=== PATIENT | male | born 1955 | race Hispanic/Latino ===

== ENCOUNTER 2017-04-06 16:06 | Inpatient (IN) | payer MEDICARE ==
[2017-04-06 17:08] LABS: #Lymphocytes 0.4 thou/uL (1.20-3.40); #Monocytes 0.7 thou/uL (0.11-0.59); #Neutrophils 12.2 thou/uL (1.40-6.50); %Eosinophils 0.3 % (0.0-10.0); %Lymphocytes 3.2 % (21.0-51.0); %Monocytes 5.1 % (0.0-10.0); Mean Platelet Volume 6.4 fL (7.4-10.4); Red Blood Cell (RBC) Count 3.79 mill/uL (4.70-6.10); White Blood Cell (WBC) Count 13.4 thou/uL (4.8-10.8)
[2017-04-06 17:34] LABS: ALT (SGPT) 33 U/L (8-55); AST (SGOT) 30 U/L (5-34); Alkaline Phosphatase 98 U/L (40-150); Anion Gap 15 mmol/L (10-20); BUN (Urea Nitrogen) 24 mg/dL (8.4-25.7); Bilirubin, Total 1.5 mg/dL (0.2-1.2); Calc. Creatinine Clearance 0 mL/min (70-130); Calcium 9.2 mg/dL (7.8-10.44); Carbon Dioxide 23 mmol/L (22-29); Chloride 97 mmol/L (98-107); Estimated GFR-MDRD 45; Globulin 5.1 g/dL (2.4-3.5); Protein, Total 8.7 g/dL (6.0-8.3)
--- NOTE | 2017-04-06 20:36 | RAD ---
RIGHT FOOT RADIOGRAPHS THREE VIEWS 04/06/17 PROVIDED CLINICAL HISTORY: Diabetic foot wound. FINDINGS: No evidence for fracture or other acute osseous abnormality. Alignment appears anatomic. Joint spaces appear preserved. Plantar calcaneal enthesophyte formation was noted. IMPRESSION: No radiographic evidence for osteomyelitis. POS: [facility]
--- NOTE | 2017-04-06 22:11 | RAD ---
LEFT FOOT RADIOGRAPHS THREE VIEWS 04/06/17 PROVIDED CLINICAL HISTORY: Diabetic foot wound. FINDINGS: Comparison is made with a study dated 10/14/16. Postoperative changes involving the fourth and fifth rays are demonstrated similar to prior study. De generative changes are seen at the midfoot. There is no evidence for fracture or other acute osseous abnormality. Plantar calcaneal enthesophyte formation is seen. Lucency in the soft tissues plantar as pect of the forefoot on the lateral view is compatible with the provided clinical history of wound. N o lytic change is apparent radiographically. IMPRESSION: 1. No radiographic evidence for osteomyelitis. POS: [facility]
[2017-04-06 23:13] LABS: Lactic Acid - Sepsis 1.6 mmol/L (0.5-2.2)
[2017-04-07] MEDS ORDERED: Acetaminophen 325 MG TAB PO PRN ×2 (01:17→06:59)
[2017-04-07] MEDS ORDERED: Ondansetron HCl/PF 4 MG/2 ML Vial IVP PRN ×2 (01:17→06:59)
[2017-04-07] MEDS ORDERED: Ondansetron ODT 4 MG TAB SL PRN (01:17)
[2017-04-07] MEDS ORDERED: HYDROcodone/Acetaminophen 10/325 mg Tablet PO PRN (06:59)
[2017-04-07] MEDS ORDERED: Chloraseptic Spray 180 ml Bottle PO PRN (06:59)
[2017-04-07] MEDS ORDERED: Dextrose 50% Abboject 50 ML SYRINGE SLOW IVP PRN (06:59)
[2017-04-07] MEDS ORDERED: Milk Of Magnesia 30 ML UDCUP PO PRN (06:59)
[2017-04-07] MEDS ORDERED: Mag-Al 1200 mg/1200 mg/30 ML UDCUP PO PRN (06:59)
[2017-04-07] MEDS ORDERED: hydrALAZINE 20 MG/ML VIAL SLOW IVP PRN (06:59)
[2017-04-07] MEDS ORDERED: Diabetic Tussin 200 MG/10 ML UDCUP PO PRN (06:59)
[2017-04-07] MEDS ORDERED: Senokot 8.6 MG TAB PO PRN (06:59)
[2017-04-07] MEDS ORDERED: Zolpidem Tartrate 5 MG TAB PO PRN (06:59)
[2017-04-07] MEDS ORDERED: Loratadine 10 MG TAB PO PRN (06:59)
[2017-04-07] MEDS ORDERED: HumaLOG 300 UNITS/3 ML VIAL SC PRN (06:59)
[2017-04-07] MEDS ORDERED: Sodium Chloride 0.65% Nasal 44 ML BOT EA NARE PRN (06:59)
[2017-04-07] MEDS ORDERED: Acetaminophen/Codeine 30-300mg Tablet PO PRN (06:59)
[2017-04-07] MEDS ORDERED: Eucerin (Mineral Oil/Petrolatum,White) 30 gm Jar TOP PRN (06:59)
[2017-04-07] MEDS ORDERED: Ondansetron ODT 4 MG TAB PO PRN (06:59)
[2017-04-07] MEDS ORDERED: Artificial Tears 18 DROP/0.9 ML EA EYE PRN (06:59)
[2017-04-07] MEDS ORDERED: Loperamide HCl 2 MG CAP PO PRN (06:59)
[2017-04-07] MEDS ORDERED: Dextrose 5% in Water 1,000 ML IV PRN (06:59)
[2017-04-07] MEDS ORDERED: Morphine 4 MG/ML VIAL SLOW IVP PRN (07:45)
[2017-04-07] MEDS: glyBURIDE 5 MG TAB PO SCH (09:12)
[2017-04-07] MEDS: Saccharomyces boulardii 250 MG CAP PO SCH (09:12)
[2017-04-07] MEDS: Famotidine 20 MG TAB PO SCH ×2 (09:13→21:14)
[2017-04-07] MEDS: Clopidogrel Bisulfate 75 MG TAB PO SCH (09:13)
[2017-04-07] MEDS: Atorvastatin Calcium 20 MG TAB PO SCH (09:13)
[2017-04-07] MEDS: Lisinopril 10 MG TAB PO SCH (09:13)
[2017-04-07] MEDS: Aspirin 81 mg Enteric Coated Tablet PO SCH (09:13)
[2017-04-07] MEDS: metFORMIN 500 MG TAB PO SCH (09:13)
[2017-04-07] MEDS: Enoxaparin Sodium 40 MG/0.4 ML SYRINGE SC SCH (09:14)
[2017-04-07] MEDS: Piperacillin/Tazobactam 4.5 GM in Sodium Chloride 0.9% 100 ML IVPB SCH ×4 (09:14→21:13)
[2017-04-07] MEDS: HumaLOG 300 UNITS/3 ML VIAL SC PRN ×2 (11:41→16:47)
--- NOTE | 2017-04-07 12:09 | HP ---
PRIMARY CARE PHYSICIAN: Dr. Yazmin Akins. REASON FOR ADMISSION: Right diabetic foot infection. HISTORY OF PRESENT ILLNESS: A 61-year-old male who presented to emergency room for evaluati on of wound on both feet on plantar aspect. Patient reports that he has deep wound on the left foot plantar aspect and smaller wound on the right foot on plantar aspect. He was seen by floor runner and he was instructed to go to emergency room. Paint Stockman suspected for osteomyelitis. Patient was also having erythema and swelling over right foot. He also had a fluctuance at the base of the right lit tle toe. Patient was having throbbing pain in the right foot and his erythema was progressing. He w as also having fever and chills and he was feeling weak. He was not able to put weight, because of t enderness, and with this, he presented to the emergency room for evaluation. Patient had foot x-ray on both sides, which was negative for any osteomyelitis. Patient has a right foot cellulitis with po ssible abscess and patient was admitted from ER to medical floor. The patient also reports that he was having foul smelling drainage from the plantar aspect of ulcer o n both feet, more on the right side. REVIEW OF SYSTEMS: The following complete review of systems was negative, unless otherwise mentioned in the HPI or below: Constitutional: Weight loss or gain, ability to conduct usual activities. Sk in: Rash, itching. Eyes: Double vision, pain. ENT/Mouth: Nose bleeding, neck stiffness, pain, te nderness. Cardiovascular: Palpitations, dyspnea on exertion, orthopnea. Respiratory: Shortness of breath, wheezing, cough, hemoptysis, fever, or night sweats. Gastrointestinal: Poor appetite, abdo jai pain, heartburn, nausea, vomiting, constipation, or diarrhea. Genitourinary: Urgency, frequen cy, dysuria, nocturia. Musculoskeletal: Pain, swelling. Neurologic/Psychiatric: Anxiety, depressi on. Allergy/Immunologic: Skin rash, bleeding tendency. Please see my HPI for pertinent positives a nd negatives. All other review of systems reviewed and negative except as mentioned in the HPI. ALLERGY: Acetazolamide. CURRENT HOME MEDICATIONS: Tylenol 1 gram p.o. q.6 hourly p.r.n., Tylenol #3 one tablet q.6 hourly p. r.n., aspirin 81 mg p.o. daily, Lipitor 20 mg p.o. daily, Plavix 75 mg p.o. daily, DiaBeta 5 mg p.o. daily, Levemir 20 units subcutaneous at bedtime, Humalog insulin as per sliding scale, lisinopril 10 mg p.o. daily, metformin 1000 mg p.o. daily, Toprol-XL 50 mg p.o. daily, Januvia 25 mg p.o. daily. PAST MEDICAL HISTORY: 1. Diabetes, type 2. 2. Glaucoma. 3. Hypertension. 4. Coronary artery disease. 5. Peripheral vascular disease. PAST SURGICAL HISTORY: Left fourth and fifth toe amputation, cardiac catheterization with stent. PAST PSYCHIATRIC HISTORY: Reviewed and negative. SOCIAL HISTORY: The patient lives at home with family. No history of tobacco, alcohol, or illicit d rug abuse. FAMILY HISTORY: Diabetes runs among several family members. No strong family history of cancer or s troke. EMERGENCY ROOM COURSE: Patient has received vancomycin. PHYSICAL EXAMINATION: VITAL SIGNS: Currently, blood pressure 195/88, pulse 116, respiratory rate 18, temperature 99.3, sat uration 95% on room air, weight 95.3 kilograms. GENERAL: Patient is currently alert, awake, in no obvious acute distress. HEENT: Normocephalic, atraumatic. Eyes: Pupils round and reactive to light. Extraocular muscles i ntact. ENT: Oropharynx within normal limits. Moist mucous membranes. No oral lesions. No pharyng eal erythema, no exudate. NECK: Supple, no JVD, no thyromegaly, no carotid bruit, no jugular venous distention. LUNGS: Clear to auscultation without any rhonchi or rales. CARDIAC: S1, S2 regular without any murmur. ABDOMEN: Soft, bowel sounds present, nontender, nondistended. No organomegaly, no mass, no suprapub ic tenderness. BACK EXAMINATION: Unremarkable, no CVA tenderness. EXTREMITIES: Upper extremities, passive movement of all joints are normal. Lower extremities, left foot has fourth and fifth digit amputated. The patient does have a 2 x 2 cm ulcer on the left foot o n plantar aspect, right foot has erythema on dorsal aspect with fluctuance and abscess noted at the b ase of the right small toe. The patient also has an ulcer on the plantar aspect. NEUROLOGIC: Grossly nonfocal examination. The patient moves all 4 limbs. Plantar bilateral flexor. PSYCHIATRIC: Normal affect. SKIN: No skin rash other than cellulitis. SIGNIFICANT LABORATORY DATA: X-ray of the foot on both sides negative for any fracture or dislocatio n or osteomyelitis. CBC: WBC 13.4, hemoglobin 11.3, platelets 309 with a left shift. BMP: Sodium 130, potassium 4.5, chloride 97, carbon dioxide 23, BUN 24, creatinine 1.58, glucose 320, calcium 9.2 , lactic acid 1.6. LFT: AST 30, ALT 33, alkaline phosphatase 98, albumin 3.6, CRP 26.03. ASSESSMENT AND PLAN: 1. Right foot cellulitis with diabetic foot ulceration on plantar aspect with severe inflammatory re sponse on the right foot. At this point, we will try to do MRI to rule out underlying osteomyelitis. This patient will need surgical debridement for his abscess. We will consult floor runner. We will also consult Wound Care team while in hospital. Patient will need broad-spectrum antibiotic therapy with vancomycin and Zosyn. We will monitor clinical response. 2. Hyponatremia, likely due to pseudohyponatremia from uncontrolled blood sugar. We will repeat BMP tomorrow. 3. Sepsis. Patient has sepsis criteria with leukocytosis with a left shift, tachycardia, source of infection is diabetic foot infection with cellulitis. The patient is already on broad-spectrum antib iotic therapy. 4. Diabetes, type 2, uncontrolled. At this point, we will resume Levemir insulin 20 units subcutane ous at bedtime, Humalog insulin as per sliding scale, metformin 1000 mg p.o. daily, and Januvia 25 mg p.o. daily. We will also continue DiaBeta 5 mg p.o. daily, and based on Accu-Chek, we will titrate diabetes medication. We will watch for hypoglycemia. Diabetic diet will be given. Currently, blood sugar is not well controlled, maybe related with infection. 5. Chronic kidney disease, stage 3. We will monitor renal function. Currently renal function is st able. 6. Coronary artery disease with a history of peripheral vascular disease. We will continue aspirin 81 mg p.o. daily, Plavix 75 mg p.o. daily along with lisinopril 10 mg p.o. daily, and metoprolol succ inate 50 mg p.o. daily. 7. Hypertension. Continue lisinopril 10 mg p.o. daily and Toprol-XL 50 mg p.o. daily. 8. Dyslipidemia. Continue Lipitor 20 mg p.o. at bedtime. 9. Obesity with BMI 30. Weight loss education given. Healthy lifestyle measures discussed with the patient. 10. Deep venous thrombosis prophylaxis. Lovenox 40 mg subcu daily. 11. Gastrointestinal prophylaxis. Pepcid 20 mg p.o. b.i.d. 12. Pain control. We will continue with morphine p.r.n. basis for pain control. CODE STATUS: The patient is FULL CODE. Patient does not have any surrogate decision maker. Disposition and plan based on clinical course. We are expecting patient's stay in hospital more than 2 midnights. Plan of care discussed with the patient in detail.
[2017-04-07] MEDS ORDERED: Insulin Detemir 100 UNITS/ML 20 UNITS in Pre-Filled Syringe 1 EACH SC SCH (21:00)
[2017-04-07] MEDS: Vancomycin HCl 1.25 GM in Sodium Chloride 0.9% 250 ML 250 ML IVPB SCH (22:02)
[2017-04-08] MEDS: Piperacillin/Tazobactam 4.5 GM in Sodium Chloride 0.9% 100 ML IVPB SCH ×4 (01:13→20:36)
[2017-04-08] MEDS: HumaLOG 300 UNITS/3 ML VIAL SC PRN (04:23)
[2017-04-08 05:51] LABS: #Eosinphils 0.1 thou/uL (0.0-0.7); #Lymphocytes 1.2 thou/uL (1.20-3.40); #Monocytes 1.1 thou/uL (0.11-0.59); #Neutrophils 8.2 thou/uL (1.40-6.50); %Basophils 0.3 % (0.0-1.0); %Eosinophils 1.1 % (0.0-10.0); %Lymphocytes 11.2 % (21.0-51.0); %Monocytes 10.3 % (0.0-10.0); Hematocrit 27.3 % (42.0-52.0); Mean Platelet Volume 6.3 fL (7.4-10.4); Red Blood Cell (RBC) Count 2.99 mill/uL (4.70-6.10); White Blood Cell (WBC) Count 10.7 thou/uL (4.8-10.8)
[2017-04-08 06:17] LABS: ALT (SGPT) 70 U/L (8-55); AST (SGOT) 82 U/L (5-34); Alkaline Phosphatase 86 U/L (40-150); Anion Gap 11 mmol/L (10-20); BUN (Urea Nitrogen) 27 mg/dL (8.4-25.7); Bilirubin, Total 0.6 mg/dL (0.2-1.2); Calc. Creatinine Clearance 64 mL/min (70-130); Calcium 8.5 mg/dL (7.8-10.44); Carbon Dioxide 26 mmol/L (22-29); Chloride 99 mmol/L (98-107); Estimated GFR-MDRD 46; Globulin 4.1 g/dL (2.4-3.5); Protein, Total 6.7 g/dL (6.0-8.3)
[2017-04-08] MEDS: Alogliptin 6.25 MG TAB PO SCH (08:10)
[2017-04-08] MEDS: Clopidogrel Bisulfate 75 MG TAB PO SCH (08:11)
[2017-04-08] MEDS: metFORMIN 500 MG TAB PO SCH (08:11)
[2017-04-08] MEDS: Aspirin 81 mg Enteric Coated Tablet PO SCH (08:11)
[2017-04-08] MEDS: Famotidine 20 MG TAB PO SCH ×2 (08:11→20:36)
[2017-04-08] MEDS: Atorvastatin Calcium 20 MG TAB PO SCH (08:11)
[2017-04-08] MEDS: glyBURIDE 5 MG TAB PO SCH ×2 (08:11→20:37)
[2017-04-08] MEDS: Saccharomyces boulardii 250 MG CAP PO SCH (08:11)
[2017-04-08] MEDS: Lisinopril 10 MG TAB PO SCH (08:12)
[2017-04-08] MEDS: Enoxaparin Sodium 40 MG/0.4 ML SYRINGE SC SCH (08:14)
--- NOTE | 2017-04-08 10:50 | PDOC.PN ---
- Subjective Encounter Start Date: 04/08/17 Encounter Start Time: 08:15 -: old records requested/rev Patient seen and examined. No new complaints. No overnight events - Objective Resuscitation Status: Resuscitation Status FULL:Full Resuscitation MAR Reviewed: Yes Vital Signs & Weight: Vital Signs (12 hours) Temp Pulse Resp BP BP Pulse Ox 04/08/17 08:12 132/75 04/08/17 07:37 98.0 F 80 16 132/75 95 04/08/17 04:00 98.0 F 60 18 130/71 97 Weight Admit Weight 197 lb 14.4 oz Weight 197 lb 14.4 oz I&O: 04/07/17 04/08/17 04/09/17 06:59 06:59 06:59 Output Total 500 Balance -500 Result Diagrams: 04/08/17 04:36 04/08/17 04:36 Additional Labs: Accuchecks 04/07/17 04/07/17 04/07/17 20:34 16:09 11:35 POC Glucose 369 H 227 H 371 H 04/07/17 05:31 POC Glucose 386 H Radiology Reviewed by me: Yes (MRI) Phys Exam - Physical Examination Constitutional: NAD HEENT: PERRLA, moist MMs, sclera anicteric Neck: no JVD, supple Respiratory: no wheezing, no rales, no rhonchi Cardiovascular: RRR, no significant murmur, no rub Gastrointestinal: soft, non-tender, no distention, positive bowel sounds Musculoskeletal: no edema, pulses present both foot with dressing, erythema improving Neurological: non-focal, normal sensation Psychiatric: normal affect, A&O x 3 Skin: no rash, normal turgor Dx/Plan (1) Bacteremia due to Streptococcus Code(s): R78.81 - BACTEREMIA; B95.5 - UNSP STREPTOCOCCUS THE CAUSE OF DISEASES CLASSD ELSWHR Status: Acute (2) Cellulitis of right foot Code(s): L03.115 - CELLULITIS OF RIGHT LOWER LIMB Status: Acute (3) Diabetic foot infection Code(s): E11.69 - TYPE 2 DIABETES MELLITUS WITH OTHER SPECIFIED COMPLICATION; L08.9 - LOCAL INFECTION OF THE SKIN AND SUBCUTANEOUS TISSUE, UNSP Status: Acute (4) Hyponatremia Code(s): E87.1 - HYPO-OSMOLALITY AND HYPONATREMIA Status: Acute (5) Sepsis Code(s): A41.9 - SEPSIS, UNSPECIFIED ORGANISM Status: Acute (6) Transaminitis Code(s): R74.0 - NONSPEC ELEV OF LEVELS OF TRANSAMNS & LACTIC ACID DEHYDRGNSE Status: Acute (7) Anemia, normocytic normochromic Code(s): D64.9 - ANEMIA, UNSPECIFIED Status: Chronic (8) CAD (coronary artery disease) Code(s): I25.10 - ATHSCL HEART DISEASE OF [place] CORONARY ARTERY W/O ANG PCTRS Status: Chronic (9) CKD (chronic kidney disease) stage 3, GFR 30-59 ml/min Code(s): N18.3 - CHRONIC KIDNEY DISEASE, STAGE 3 (MODERATE) Status: Chronic (10) Diabetes type 2, uncontrolled Code(s): E11.65 - TYPE 2 DIABETES MELLITUS WITH HYPERGLYCEMIA Status: Chronic Qualifiers: (11) Diabetic foot ulcers Code(s): E11.621 - TYPE 2 DIABETES MELLITUS WITH FOOT ULCER; L97.509 - NON- PRESSURE CHRONIC ULCER OTH PRT UNSP FOOT W UNSP SEVERITY Status: Chronic (12) Hyperlipidemia Code(s): E78.5 - HYPERLIPIDEMIA, UNSPECIFIED Status: Chronic Qualifiers: (13) Hypertension Code(s): I10 - ESSENTIAL (PRIMARY) HYPERTENSION Status: Chronic (14) Obesity (BMI 30.0-34.9) Code(s): E66.9 - OBESITY, UNSPECIFIED Status: Chronic - Plan cont current plan of care, continue antibiotics * spoke with Dr Johnson about plan * if MRI does not show any deeper infection or osteo, he will be treated with Iv antibiotics only * continue vancomycin and zosyn for now * pt will benefit from IV antibiotics * medication reviewed as below * symptomatic treatment * wound care. * increase diabeta 5 mg po bid * increase levemir 25 unit bedtime Review of Systems - Review of Systems ENT: negative: Ear Pain, Ear Discharge, Nose Pain, Nose Discharge, Nose Congestion, Mouth Pain, Mouth Swelling, Throat Pain, Throat Swelling, Other Respiratory: negative: Cough, Dry, Shortness of Breath, Hemoptysis, SOB with Excertion, Pleuritic Pain, Sputum, Wheezing Cardiovascular: negative: chest pain, palpitations, orthopnea, paroxysmal nocturnal dyspnea, edema, light headedness, other Gastrointestinal: negative: Nausea, Vomiting, Abdominal Pain, Diarrhea, Constipation, Melena, Hematochezia, Other Genitourinary: negative: Dysuria, Frequency, Incontinence, Hematuria, Retention , Other Musculoskeletal: Foot Pain. negative: Neck Pain, Shoulder Pain, Arm Pain, Back Pain, Hand Pain, Leg Pain, Other - Medications/Allergies Allergies/Adverse Reactions: Allergies Allergy/AdvReac Type Severity Reaction Status Date / Time acetazolamide Allergy Verified 03/24/16 14:10 [From Diamox Sequels] Medications: Current Medications Acetaminophen (Tylenol) 650 mg PO Q4H PRN PRN Reason: Headache/Fever or Pain Acetaminophen/Codeine Phosphate (Tylenol #3) 1 tab PO Q6H PRN PRN Reason: Moderate Pain (4-6) Hydrocodone Bitart/Acetaminophen ([place] 10/325) 1 tab PO Q4H PRN PRN Reason: Moderate Pain (4-6) Al Hydroxide/Mg Hydroxide (Maalox) 30 ml PO Q6H PRN PRN Reason: Heartburn or Indigestion Alogliptin Benzoate (Alogliptin) 6.25 mg PO DAILY [facility] Last Admin: 04/08/17 08:10 Dose: 6.25 mg Artificial Tears (Tears Naturale) 0 drop EA EYE PRN PRN PRN Reason: Dry Eyes Aspirin (Ecotrin) 81 mg PO DAILY [facility] Last Admin: 04/08/17 08:11 Dose: 81 mg Atorvastatin Calcium (Lipitor) 20 mg PO DAILY [facility] Last Admin: 04/08/17 08:11 Dose: 20 mg Clopidogrel Bisulfate (Plavix) 75 mg PO DAILY [facility] Last Admin: 04/08/17 08:11 Dose: 75 mg Dextrose/Water (Dextrose 50%) 25 gm SLOW IVP PRN PRN PRN Reason: Hypoglycemia Enoxaparin Sodium (Lovenox) 40 mg SC 0900 [facility] Last Admin: 04/08/17 08:14 Dose: 40 mg Famotidine (Pepcid) 20 mg PO BID [facility] Last Admin: 04/08/17 08:11 Dose: 20 mg Glucagon (Glucagon) 1 mg IM PRN PRN PRN Reason: Hypoglycemia Glyburide (Diabeta) 5 mg PO QAM-WM [facility] Last Admin: 04/08/17 08:11 Dose: 5 mg Guaifenesin (Robitussin Sf) 200 mg PO Q4H PRN PRN Reason: Cough Hydralazine HCl (Apresoline) 10 mg SLOW IVP Q4H PRN PRN Reason: Systolic BP > 180 Dextrose/Water (D5w) 1,000 mls @ 0 mls/hr IV .Q0M PRN; As Directed PRN Reason: Hypoglycemia Piperacillin Sod/Tazobactam (Sod 4.5 gm/ Sodium Chloride) 100 mls @ 200 mls/hr IVPB 0200,0800,1400,2000 [facility] Last Admin: 04/08/17 08:14 Dose: 100 mls Insulin Detemir 20 units/ (Miscellaneous Medication) 0.2 mls @ 0 mls/hr SC HS [facility] PRN Reason: As Directed Last Admin: 04/07/17 21:13 Dose: 0.2 mls Vancomycin HCl 1.25 gm/ Sodium (Chloride) 250 mls @ 166.667 mls/hr IVPB 2200 [facility] Last Admin: 04/07/17 22:02 Dose: 250 mls Insulin Human Lispro (Humalog) 0 units SC .MODERATE SLIDING SC PRN PRN Reason: Moderate Correctional Scale Last Admin: 04/08/17 04:23 Dose: 4 unit Insulin Human Lispro (Humalog) 0 units SC .BEDTIME SLIDING SC PRN PRN Reason: Bedtime Correctional Scale Last Admin: 04/07/17 21:14 Dose: 5 unit Lisinopril (Zestril) 10 mg PO DAILY [facility] Last Admin: 04/08/17 08:12 Dose: 10 mg Loperamide HCl (Imodium) 2 mg PO PRN PRN PRN Reason: Diarrhea/Loose Stools Loratadine (Claritin) 10 mg PO DAILYPRN PRN PRN Reason: Sinus Symptoms Magnesium Hydroxide (Milk Of Magnesium) 30 ml PO DAILYPRN PRN PRN Reason: Constipation Metformin HCl (Glucophage) 1,000 mg PO QAM-WM [facility] Last Admin: 04/08/17 08:11 Dose: 1,000 mg Metoprolol Succinate (Toprol Xl) 50 mg PO DAILY [facility] Last Admin: 04/08/17 08:13 Dose: 50 mg Mineral Oil/White Petrolatum (Eucerin Cream) 0 gm TOP BIDPRN PRN PRN Reason: Dry Skin Miscellaneous Medication (Pharmacy To Dose) 0 each IVPB ASDIR PRN PRN Reason: Pharmacy to Dose VANCOMYCIN Morphine Sulfate (Morphine) 4 mg SLOW IVP Q4H PRN PRN Reason: Pain Ondansetron HCl (Zofran Odt) 4 mg PO Q6H PRN PRN Reason: Nausea/Vomiting Ondansetron HCl (Zofran) 4 mg IVP Q6H PRN PRN Reason: Nausea/Vomiting Phenol (Chloraseptic [place] 180 Ml Bot) 0 ml PO PRN PRN PRN Reason: Sore Throat Saccharomyces Boulardii (Florastor) 250 mg PO DAILY [facility] Last Admin: 04/08/17 08:11 Dose: 250 mg Senna (Senokot) 2 tab PO HSPRN PRN PRN Reason: Constipation Sodium Chloride ([place] Nasal [place] 0.65%) 0 ml EA NARE QIDPRN PRN PRN Reason: Nasal Congestion Zolpidem Tartrate (Ambien) 5 mg PO HSPRN PRN PRN Reason: Insomnia
--- NOTE | 2017-04-08 10:57 | MRI ---
MRI OF THE RIGHT FOOT PERFORMED WITHOUT CONTRAST ENHANCEMENT: HISTORY: Diabetic with nonhealing ulcer. Evaluation for osteomyelitis. COMPARISON: Right foot x-ray performed on 04/06/2017. FINDINGS: A soft tissue ulcer and associated swelling is seen along the lateral of the foot, at the level of th e metatarsophalangeal joint of the fifth toe. There is a very superficial fluid collection associate d with this. There is diffuse muscle atrophy of the foot. There are T1 hypointense and T2 hyperinte nse changes of the fifth metatarsal head. I do not see definitive involvement of the proximal phalan x. The remainder of the metatarsals show fairly normal signal change. There are arthritic changes o f the first metatarsophalangeal joint. IMPRESSION: Soft tissue changes adjacent to the fifth metatarsal head. There is altered signal change within the metatarsal head, suggesting underlying osteomyelitis. POS: [facility]
[2017-04-08] MEDS: Insulin Detemir 100 UNITS/ML 25 UNITS in Pre-Filled Syringe 1 EACH SC SCH (20:37)
[2017-04-08 21:49] LABS: Vancomycin, Trough 9.5 ug/mL
[2017-04-08] MEDS: Vancomycin HCl 1.25 GM in Sodium Chloride 0.9% 250 ML 250 ML IVPB SCH (21:55)
[2017-04-09] MEDS: Piperacillin/Tazobactam 4.5 GM in Sodium Chloride 0.9% 100 ML IVPB SCH ×2 (03:08→10:16)
[2017-04-09] MEDS ORDERED: Propofol 500 MG/50 ML VIAL ONE (07:26)
[2017-04-09] MEDS ORDERED: Fentanyl 100 MCG/2 ML VIAL ONE (07:26)
[2017-04-09] MEDS ORDERED: Midazolam HCl 2 mg/2 ml Vial ONE (07:26)
[2017-04-09] MEDS ORDERED: Neomycin-Polymyxin 1 ML AMP ONE ×2 (07:45→07:50)
[2017-04-09] MEDS ORDERED: Bupivacaine PF 0.5% 30 ML VIAL ONE (07:45)
[2017-04-09] MEDS ORDERED: Promethazine HCl 25 MG/ML VIAL IM PRN (08:56)
[2017-04-09] MEDS ORDERED: Promethazine HCl 25 MG/ML VIAL SLOW IVP PRN (08:56)
[2017-04-09] MEDS ORDERED: Ondansetron HCl/PF 4 MG/2 ML Vial IVP PRN (08:56)
[2017-04-09] MEDS ORDERED: PHENYLEPHRINE-NS 100 MCG/ML 10 ML SYRINGE ONE (09:36)
[2017-04-09] MEDS: Clopidogrel Bisulfate 75 MG TAB PO SCH (10:16)
[2017-04-09] MEDS: Enoxaparin Sodium 40 MG/0.4 ML SYRINGE SC SCH (10:16)
[2017-04-09] MEDS: Aspirin 81 mg Enteric Coated Tablet PO SCH (10:16)
[2017-04-09] MEDS: Saccharomyces boulardii 250 MG CAP PO SCH (10:26)
[2017-04-09] MEDS: glyBURIDE 5 MG TAB PO SCH ×2 (10:27→21:52)
[2017-04-09] MEDS: Atorvastatin Calcium 20 MG TAB PO SCH (10:27)
[2017-04-09] MEDS: Lisinopril 10 MG TAB PO SCH (10:27)
[2017-04-09] MEDS: Famotidine 20 MG TAB PO SCH ×2 (10:27→21:52)
[2017-04-09] MEDS: Alogliptin 6.25 MG TAB PO SCH (10:27)
[2017-04-09] MEDS: metFORMIN 500 MG TAB PO SCH (10:32)
--- NOTE | 2017-04-09 10:35 | OP ---
DATE OF PROCEDURE: 04/09/2017 SURGEON: Tho Johnson DPM. PREOPERATIVE DIAGNOSIS: Abscess with osteomyelitis, right fifth metatarsal. POSTOPERATIVE DIAGNOSIS: Abscess with osteomyelitis, right fifth metatarsal. PROCEDURES PERFORMED: Partial fifth ray amputation, right foot. ANESTHESIA: Monitored anesthetic care with local infiltrative block. HEMOSTASIS: None. ESTIMATED BLOOD LOSS: 10 mL. MATERIALS: Packing gauze and various dressing materials. INJECTABLES: 10 mL of 0.5% Marcaine plain preoperatively. COMPLICATIONS: None. SUMMARY OF PROCEDURE: Patient was brought into the operative suite and placed supine on the operativ e table. Time out performed identifying correct patient, procedure and operative site. A well-padde d tourniquet placed about the right ankle, which ultimately was not used. Foot was prepped and drape d in an aseptic manner. Attention directed to the dorsal aspect of the lateral right fifth metatarsa l head. There has been a new blow out lesion here which is draining pus. Linear incision made at th e length of the fifth metatarsal and then around the base of the fifth digit, the fifth digit was dis articulated at the metatarsophalangeal joint and sent to pathology for gross and microscopic evaluati on. The fifth metatarsal head was found to be soft, crumbling and sample of this was taken and sent for culture, aerobic and anaerobic cultures. Liquefactive tissue and purulence was noted throughout the wound site. All the nonviable tissue was excised and removed. The fifth metatarsal was transect ed with power saw through the proximal metatarsal shaft at an area that was deemed hardened without i nfection. Distal portion of the bone was removed from the wound. The wound was then irrigated with 3 liters of normal saline mixed with 3 units of and the irrigant by pulse lavage. Wound was reexa mined after the washout noted and all nonviable tissue had been removed. The wound looked clean and healthy at this time, it was packed open with gauze and then dressings applied including 4 x 4s, ABD pads and Arnulfo bandage. He will be transferred back to the hospital floor, we will consult Wound Care to apply wound VAC to this wound for 3 times a week dressing changes and 125 mmHg, continuous negativ e pressure to the wound. The patient tolerated the procedure and anesthesia well and was transported out of the operative suite with vital signs stable and neurovascular status intact to the right lowe r extremity. He will be kept for a short period of monitoring in the after care unit and then transf erred back to his room.
--- NOTE | 2017-04-09 11:34 | PDOC.PN ---
- Subjective Encounter Start Date: 04/09/17 Encounter Start Time: 08:15 Patient seen and examined. No new complaints. No overnight events s/p toe amputation today - Objective Resuscitation Status: Resuscitation Status FULL:Full Resuscitation MAR Reviewed: Yes Vital Signs & Weight: Vital Signs (12 hours) Temp Pulse Resp BP BP BP Pulse Ox 04/09/17 10:35 68 20 155/81 H 95 04/09/17 10:27 132/75 04/09/17 10:00 97.6 F 68 20 139/79 95 04/09/17 09:27 97.0 F L 69 16 118/69 96 04/09/17 06:34 76 120/76 04/09/17 05:19 98.2 F 76 18 151/91 H 98 Weight Admit Weight 197 lb 14.4 oz Weight 197 lb 14.4 oz I&O: 04/08/17 04/09/17 04/10/17 06:59 06:59 06:59 Intake Total 1500 Output Total 500 900 Balance -500 600 Result Diagrams: 04/08/17 04:36 04/08/17 04:36 Additional Labs: Accuchecks 04/09/17 04/09/17 04/08/17 07:44 03:57 20:13 POC Glucose 203 H 214 H 251 H 04/08/17 04/08/17 04/08/17 16:20 11:27 04:22 POC Glucose 122 H 124 H 238 H Phys Exam - Physical Examination Constitutional: NAD HEENT: PERRLA, moist MMs, sclera anicteric Neck: no JVD, supple Respiratory: no wheezing, no rales, no rhonchi Cardiovascular: RRR, no significant murmur, no rub Gastrointestinal: soft, non-tender, no distention, positive bowel sounds Musculoskeletal: no edema, pulses present right foot with dressing Neurological: non-focal, normal sensation, moves all 4 limbs Psychiatric: normal affect, A&O x 3 Skin: no rash, normal turgor Dx/Plan (1) Bacteremia due to Streptococcus Code(s): R78.81 - BACTEREMIA; B95.5 - UNSP STREPTOCOCCUS THE CAUSE OF DISEASES CLASSD ELSWHR Status: Acute (2) Cellulitis of right foot Code(s): L03.115 - CELLULITIS OF RIGHT LOWER LIMB Status: Acute (3) Diabetic foot infection Code(s): E11.69 - TYPE 2 DIABETES MELLITUS WITH OTHER SPECIFIED COMPLICATION; L08.9 - LOCAL INFECTION OF THE SKIN AND SUBCUTANEOUS TISSUE, UNSP Status: Acute (4) Hyponatremia Code(s): E87.1 - HYPO-OSMOLALITY AND HYPONATREMIA Status: Acute (5) Sepsis Code(s): A41.9 - SEPSIS, UNSPECIFIED ORGANISM Status: Acute (6) Transaminitis Code(s): R74.0 - NONSPEC ELEV OF LEVELS OF TRANSAMNS & LACTIC ACID DEHYDRGNSE Status: Acute (7) Anemia, normocytic normochromic Code(s): D64.9 - ANEMIA, UNSPECIFIED Status: Chronic (8) CAD (coronary artery disease) Code(s): I25.10 - ATHSCL HEART DISEASE OF [place] CORONARY ARTERY W/O ANG PCTRS Status: Chronic (9) CKD (chronic kidney disease) stage 3, GFR 30-59 ml/min Code(s): N18.3 - CHRONIC KIDNEY DISEASE, STAGE 3 (MODERATE) Status: Chronic (10) Diabetes type 2, uncontrolled Code(s): E11.65 - TYPE 2 DIABETES MELLITUS WITH HYPERGLYCEMIA Status: Chronic Qualifiers: (11) Diabetic foot ulcers Code(s): E11.621 - TYPE 2 DIABETES MELLITUS WITH FOOT ULCER; L97.509 - NON- PRESSURE CHRONIC ULCER OTH PRT UNSP FOOT W UNSP SEVERITY Status: Chronic (12) Hyperlipidemia Code(s): E78.5 - HYPERLIPIDEMIA, UNSPECIFIED Status: Chronic Qualifiers: (13) Hypertension Code(s): I10 - ESSENTIAL (PRIMARY) HYPERTENSION Status: Chronic (14) Obesity (BMI 30.0-34.9) Code(s): E66.9 - OBESITY, UNSPECIFIED Status: Chronic - Plan cont current plan of care, plan discussed w/ family, continue antibiotics * will dc vancomycin and zosyn * today will change to rocephin only * wound care * will need wound vac * pain control * discussed with dr mason * medication reviewed as below * symptomatic treatment. Review of Systems - Review of Systems ENT: negative: Ear Pain, Ear Discharge, Nose Pain, Nose Discharge, Nose Congestion, Mouth Pain, Mouth Swelling, Throat Pain, Throat Swelling, Other Respiratory: negative: Cough, Dry, Shortness of Breath, Hemoptysis, SOB with Excertion, Pleuritic Pain, Sputum, Wheezing Cardiovascular: negative: chest pain, palpitations, orthopnea, paroxysmal nocturnal dyspnea, edema, light headedness, other Gastrointestinal: negative: Nausea, Vomiting, Abdominal Pain, Diarrhea, Constipation, Melena, Hematochezia, Other Genitourinary: negative: Dysuria, Frequency, Incontinence, Hematuria, Retention , Other Musculoskeletal: negative: Neck Pain, Shoulder Pain, Arm Pain, Back Pain, Hand Pain, Leg Pain, Foot Pain, Other Skin: negative: Rash, Lesions, Ramone, Bruising, Other - Medications/Allergies Allergies/Adverse Reactions: Allergies Allergy/AdvReac Type Severity Reaction Status Date / Time acetazolamide Allergy Verified 03/24/16 14:10 [From Diamox Sequels] Medications: Current Medications Acetaminophen (Tylenol) 650 mg PO Q4H PRN PRN Reason: Headache/Fever or Pain Acetaminophen/Codeine Phosphate (Tylenol #3) 1 tab PO Q6H PRN PRN Reason: Moderate Pain (4-6) Hydrocodone Bitart/Acetaminophen ([place] 10/325) 1 tab PO Q4H PRN PRN Reason: Moderate Pain (4-6) Al Hydroxide/Mg Hydroxide (Maalox) 30 ml PO Q6H PRN PRN Reason: Heartburn or Indigestion Alogliptin Benzoate (Alogliptin) 6.25 mg PO DAILY [facility] Last Admin: 04/09/17 10:27 Dose: 6.25 mg Artificial Tears (Tears Naturale) 0 drop EA EYE PRN PRN PRN Reason: Dry Eyes Aspirin (Ecotrin) 81 mg PO DAILY [facility] Last Admin: 04/09/17 10:16 Dose: Not Given Atorvastatin Calcium (Lipitor) 20 mg PO DAILY [facility] Last Admin: 04/09/17 10:27 Dose: 20 mg Clopidogrel Bisulfate (Plavix) 75 mg PO DAILY [facility] Last Admin: 04/09/17 10:16 Dose: Not Given Dextrose/Water (Dextrose 50%) 25 gm SLOW IVP PRN PRN PRN Reason: Hypoglycemia Enoxaparin Sodium (Lovenox) 40 mg SC 0900 [facility] Last Admin: 04/09/17 10:16 Dose: Not Given Famotidine (Pepcid) 20 mg PO BID [facility] Last Admin: 04/09/17 10:27 Dose: 20 mg Fentanyl (Pacu-Sublimaze) 50 mcg SLOW IVP Q10MIN PRN PRN Reason: Moderate to Severe Pain (6-10) Stop: 04/09/17 11:56 Glucagon (Glucagon) 1 mg IM PRN PRN PRN Reason: Hypoglycemia Glyburide (Diabeta) 5 mg PO BID [facility] Last Admin: 04/09/17 10:27 Dose: 5 mg Guaifenesin (Robitussin Sf) 200 mg PO Q4H PRN PRN Reason: Cough Hydralazine HCl (Apresoline) 10 mg SLOW IVP Q4H PRN PRN Reason: Systolic BP > 180 Dextrose/Water (D5w) 1,000 mls @ 0 mls/hr IV .Q0M PRN; As Directed PRN Reason: Hypoglycemia Piperacillin Sod/Tazobactam (Sod 4.5 gm/ Sodium Chloride) 100 mls @ 200 mls/hr IVPB 0200,0800,1400,2000 [facility] Last Admin: 04/09/17 10:16 Dose: Not Given Insulin Detemir 25 units/ (Miscellaneous Medication) 0.25 mls @ 0 mls/hr SC [facility] Last Admin: 04/08/17 20:37 Dose: 0.25 mls Vancomycin HCl 1.5 gm/ Sodium (Chloride) 300 mls @ 200 mls/hr IVPB 2200 [facility] Insulin Human Lispro (Humalog) 0 units SC .MODERATE SLIDING SC PRN PRN Reason: Moderate Correctional Scale Last Admin: 04/08/17 04:23 Dose: 4 unit Insulin Human Lispro (Humalog) 0 units SC .BEDTIME SLIDING SC PRN PRN Reason: Bedtime Correctional Scale Last Admin: 04/07/17 21:14 Dose: 5 unit Lisinopril (Zestril) 10 mg PO DAILY [facility] Last Admin: 04/09/17 10:27 Dose: 10 mg Loperamide HCl (Imodium) 2 mg PO PRN PRN PRN Reason: Diarrhea/Loose Stools Loratadine (Claritin) 10 mg PO DAILYPRN PRN PRN Reason: Sinus Symptoms Magnesium Hydroxide (Milk Of Magnesium) 30 ml PO DAILYPRN PRN PRN Reason: Constipation Metformin HCl (Glucophage) 1,000 mg PO QA-[facility] Last Admin: 04/09/17 10:32 Dose: 1,000 mg Metoprolol Succinate (Toprol Xl) 50 mg PO DAILY [facility] Last Admin: 04/09/17 06:33 Dose: 50 mg Mineral Oil/White Petrolatum (Eucerin Cream) 0 gm TOP BIDPRN PRN PRN Reason: Dry Skin Miscellaneous Medication (Pharmacy To Dose) 0 each IVPB ASDIR PRN PRN Reason: Pharmacy to Dose VANCOMYCIN Morphine Sulfate (Morphine) 4 mg SLOW IVP Q4H PRN PRN Reason: Pain Ondansetron HCl (Zofran Odt) 4 mg PO Q6H PRN PRN Reason: Nausea/Vomiting Ondansetron HCl (Zofran) 4 mg IVP Q6H PRN PRN Reason: Nausea/Vomiting Ondansetron HCl (Pacu-Zofran) 4 mg IVP ONE PRN PRN Reason: Nausea/Vomiting Stop: 04/09/17 11:56 Phenol (Chloraseptic [place] 180 Ml Bot) 0 ml PO PRN PRN PRN Reason: Sore Throat Promethazine HCl (Pacu-Phenergan) 6.25 mg SLOW IVP ONE PRN PRN Reason: Nausea/Vomiting Stop: 04/09/17 11:56 Promethazine HCl (Pacu-Phenergan) 6.25 mg IM ONE PRN PRN Reason: Nausea/Vomiting Stop: 04/09/17 11:56 Saccharomyces Boulardii (Florastor) 250 mg PO DAILY [facility] Last Admin: 04/09/17 10:26 Dose: 250 mg Senna (Senokot) 2 tab PO HSPRN PRN PRN Reason: Constipation Sodium Chloride ([place] Nasal [place] 0.65%) 0 ml EA NARE QIDPRN PRN PRN Reason: Nasal Congestion Zolpidem Tartrate (Ambien) 5 mg PO HSPRN PRN PRN Reason: Insomnia
--- NOTE | 2017-04-09 12:33 | RAD ---
RIGHT FOOT 2 VIEWS: Date: 04/09/17 HISTORY: Cellulitis. COMPARISON: Radiographs dated 04/06/17. FINDINGS: Interval resection of the fifth metatarsal. Expected postop gas and edema. IMPRESSION: Expected postoperative findings from fifth metatarsal amputation. POS: NIRAJ
[2017-04-09] MEDS: cefTRIAXone\\ROCEPHIN 2 GM in Sodium Chloride 0.9% 100 ML IVPB SCH (13:11)
[2017-04-09] MEDS: HumaLOG 300 UNITS/3 ML VIAL SC PRN ×2 (13:19→18:51)
[2017-04-09] MEDS ORDERED: Vancomycin HCl 1.5 GM in Sodium Chloride 0.9% 250 ML 300 ML IVPB SCH (22:00)
[2017-04-09] MEDS: Insulin Detemir 100 UNITS/ML 25 UNITS in Pre-Filled Syringe 1 EACH SC SCH (22:29)
[2017-04-10] MEDS: Aspirin 81 mg Enteric Coated Tablet PO SCH (08:01)
[2017-04-10] MEDS: Alogliptin 6.25 MG TAB PO SCH (08:01)
[2017-04-10] MEDS: metFORMIN 500 MG TAB PO SCH (08:01)
[2017-04-10] MEDS: Famotidine 20 MG TAB PO SCH ×2 (08:02→21:09)
[2017-04-10] MEDS: Atorvastatin Calcium 20 MG TAB PO SCH (08:02)
[2017-04-10] MEDS: Saccharomyces boulardii 250 MG CAP PO SCH (08:02)
[2017-04-10] MEDS: glyBURIDE 5 MG TAB PO SCH ×2 (08:02→21:09)
[2017-04-10] MEDS: Clopidogrel Bisulfate 75 MG TAB PO SCH (08:02)
[2017-04-10] MEDS: Enoxaparin Sodium 40 MG/0.4 ML SYRINGE SC SCH (08:03)
[2017-04-10] MEDS: Lisinopril 10 MG TAB PO SCH (08:03)
[2017-04-10] MEDS: cefTRIAXone\\ROCEPHIN 2 GM in Sodium Chloride 0.9% 100 ML IVPB SCH (11:04)
--- NOTE | 2017-04-10 12:02 | PDOC.PN ---
- Subjective Encounter Start Date: 04/10/17 Encounter Start Time: 07:30 Patient seen and examined. No new complaints. No overnight events - Objective Resuscitation Status: Resuscitation Status FULL:Full Resuscitation MAR Reviewed: Yes Vital Signs & Weight: Vital Signs (12 hours) Temp Pulse Resp BP BP Pulse Ox 04/10/17 08:35 97.9 F 76 16 139/82 97 04/10/17 08:03 132/75 04/10/17 08:00 97.9 F 76 16 97 Weight Admit Weight 197 lb 14.4 oz Weight 197 lb 14.4 oz I&O: 04/09/17 04/10/17 04/11/17 06:59 06:59 06:59 Intake Total 1500 500 Output Total 900 600 Balance 600 -100 Result Diagrams: 04/08/17 04:36 04/08/17 04:36 Additional Labs: Accuchecks 04/10/17 04/09/17 04/09/17 05:56 21:18 16:24 POC Glucose 128 H 311 H 175 H Phys Exam - Physical Examination Constitutional: NAD HEENT: PERRLA, moist MMs, sclera anicteric Neck: no JVD, supple Respiratory: no wheezing, no rales, no rhonchi Cardiovascular: RRR, no significant murmur, no rub Gastrointestinal: soft, non-tender, no distention, positive bowel sounds both foot with dressing, right foot with wound vac Neurological: non-focal, normal sensation, moves all 4 limbs Psychiatric: normal affect, A&O x 3 Skin: no rash, normal turgor Dx/Plan (1) Bacteremia due to Streptococcus Code(s): R78.81 - BACTEREMIA; B95.5 - UNSP STREPTOCOCCUS THE CAUSE OF DISEASES CLASSD ELSWHR Status: Acute (2) Cellulitis of right foot Code(s): L03.115 - CELLULITIS OF RIGHT LOWER LIMB Status: Acute (3) Diabetic foot infection Code(s): E11.69 - TYPE 2 DIABETES MELLITUS WITH OTHER SPECIFIED COMPLICATION; L08.9 - LOCAL INFECTION OF THE SKIN AND SUBCUTANEOUS TISSUE, UNSP Status: Acute (4) Hyponatremia Code(s): E87.1 - HYPO-OSMOLALITY AND HYPONATREMIA Status: Acute (5) Sepsis Code(s): A41.9 - SEPSIS, UNSPECIFIED ORGANISM Status: Acute (6) Transaminitis Code(s): R74.0 - NONSPEC ELEV OF LEVELS OF TRANSAMNS & LACTIC ACID DEHYDRGNSE Status: Acute (7) Anemia, normocytic normochromic Code(s): D64.9 - ANEMIA, UNSPECIFIED Status: Chronic (8) CAD (coronary artery disease) Code(s): I25.10 - ATHSCL HEART DISEASE OF [place] CORONARY ARTERY W/O ANG PCTRS Status: Chronic (9) CKD (chronic kidney disease) stage 3, GFR 30-59 ml/min Code(s): N18.3 - CHRONIC KIDNEY DISEASE, STAGE 3 (MODERATE) Status: Chronic (10) Diabetes type 2, uncontrolled Code(s): E11.65 - TYPE 2 DIABETES MELLITUS WITH HYPERGLYCEMIA Status: Chronic Qualifiers: (11) Diabetic foot ulcers Code(s): E11.621 - TYPE 2 DIABETES MELLITUS WITH FOOT ULCER; L97.509 - NON- PRESSURE CHRONIC ULCER OTH PRT UNSP FOOT W UNSP SEVERITY Status: Chronic (12) Hyperlipidemia Code(s): E78.5 - HYPERLIPIDEMIA, UNSPECIFIED Status: Chronic Qualifiers: (13) Hypertension Code(s): I10 - ESSENTIAL (PRIMARY) HYPERTENSION Status: Chronic (14) Obesity (BMI 30.0-34.9) Code(s): E66.9 - OBESITY, UNSPECIFIED Status: Chronic - Plan cont current plan of care, plan discussed w/ family, 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 Review of Systems - Review of Systems ENT: negative: Ear Pain, Ear Discharge, Nose Pain, Nose Discharge, Nose Congestion, Mouth Pain, Mouth Swelling, Throat Pain, Throat Swelling, Other Respiratory: negative: Cough, Dry, Shortness of Breath, Hemoptysis, SOB with Excertion, Pleuritic Pain, Sputum, Wheezing Cardiovascular: negative: chest pain, palpitations, orthopnea, paroxysmal nocturnal dyspnea, edema, light headedness, other Gastrointestinal: negative: Nausea, Vomiting, Abdominal Pain, Diarrhea, Constipation, Melena, Hematochezia, Other Genitourinary: negative: Dysuria, Frequency, Incontinence, Hematuria, Retention , Other Musculoskeletal: negative: Neck Pain, Shoulder Pain, Arm Pain, Back Pain, Hand Pain, Leg Pain, Foot Pain, Other Skin: negative: Rash, Lesions, Ramone, Bruising, Other - Medications/Allergies Allergies/Adverse Reactions: Allergies Allergy/AdvReac Type Severity Reaction Status Date / Time acetazolamide Allergy Verified 03/24/16 14:10 [From Diamox Sequels] Medications: Current Medications Acetaminophen (Tylenol) 650 mg PO Q4H PRN PRN Reason: Headache/Fever or Pain Acetaminophen/Codeine Phosphate (Tylenol #3) 1 tab PO Q6H PRN PRN Reason: Moderate Pain (4-6) Hydrocodone Bitart/Acetaminophen ([place] 10/325) 1 tab PO Q4H PRN PRN Reason: Moderate Pain (4-6) Al Hydroxide/Mg Hydroxide (Maalox) 30 ml PO Q6H PRN PRN Reason: Heartburn or Indigestion Alogliptin Benzoate (Alogliptin) 6.25 mg PO DAILY [facility] Last Admin: 04/10/17 08:01 Dose: 6.25 mg Artificial Tears (Tears Naturale) 0 drop EA EYE PRN PRN PRN Reason: Dry Eyes Aspirin (Ecotrin) 81 mg PO DAILY [facility] Last Admin: 04/10/17 08:01 Dose: 81 mg Atorvastatin Calcium (Lipitor) 20 mg PO DAILY [facility] Last Admin: 04/10/17 08:02 Dose: 20 mg Clopidogrel Bisulfate (Plavix) 75 mg PO DAILY [facility] Last Admin: 04/10/17 08:02 Dose: 75 mg Dextrose/Water (Dextrose 50%) 25 gm SLOW IVP PRN PRN PRN Reason: Hypoglycemia Enoxaparin Sodium (Lovenox) 40 mg SC 0900 [facility] Last Admin: 04/10/17 08:03 Dose: 40 mg Famotidine (Pepcid) 20 mg PO BID [facility] Last Admin: 04/10/17 08:02 Dose: 20 mg Glucagon (Glucagon) 1 mg IM PRN PRN PRN Reason: Hypoglycemia Glyburide (Diabeta) 5 mg PO BID [facility] Last Admin: 04/10/17 08:02 Dose: 5 mg Guaifenesin (Robitussin Sf) 200 mg PO Q4H PRN PRN Reason: Cough Hydralazine HCl (Apresoline) 10 mg SLOW IVP Q4H PRN PRN Reason: Systolic BP > 180 Dextrose/Water (D5w) 1,000 mls @ 0 mls/hr IV .Q0M PRN; As Directed PRN Reason: Hypoglycemia Insulin Detemir 25 units/ (Miscellaneous Medication) 0.25 mls @ 0 mls/hr SC [facility] Last Admin: 04/09/17 22:29 Dose: 0.25 mls Ceftriaxone Sodium 2 gm/ (Sodium Chloride) 100 mls @ 200 mls/hr IVPB Q24HR@ 1200 [facility] Last Admin: 04/10/17 11:04 Dose: 100 mls Insulin Human Lispro (Humalog) 0 units SC .MODERATE SLIDING SC PRN PRN Reason: Moderate Correctional Scale Last Admin: 04/09/17 18:51 Dose: 2 unit Insulin Human Lispro (Humalog) 0 units SC .BEDTIME SLIDING SC PRN PRN Reason: Bedtime Correctional Scale Last Admin: 04/07/17 21:14 Dose: 5 unit Lisinopril (Zestril) 10 mg PO DAILY [facility] Last Admin: 04/10/17 08:03 Dose: 10 mg Loperamide HCl (Imodium) 2 mg PO PRN PRN PRN Reason: Diarrhea/Loose Stools Loratadine (Claritin) 10 mg PO DAILYPRN PRN PRN Reason: Sinus Symptoms Magnesium Hydroxide (Milk Of Magnesium) 30 ml PO DAILYPRN PRN PRN Reason: Constipation Metformin HCl (Glucophage) 1,000 mg PO QA-[facility] Last Admin: 04/10/17 08:01 Dose: 1,000 mg Metoprolol Succinate (Toprol Xl) 50 mg PO DAILY [facility] Last Admin: 04/10/17 08:01 Dose: 50 mg Mineral Oil/White Petrolatum (Eucerin Cream) 0 gm TOP BIDPRN PRN PRN Reason: Dry Skin Morphine Sulfate (Morphine) 4 mg SLOW IVP Q4H PRN PRN Reason: Pain Ondansetron HCl (Zofran Odt) 4 mg PO Q6H PRN PRN Reason: Nausea/Vomiting Ondansetron HCl (Zofran) 4 mg IVP Q6H PRN PRN Reason: Nausea/Vomiting Phenol (Chloraseptic [place] 180 Ml Bot) 0 ml PO PRN PRN PRN Reason: Sore Throat Saccharomyces Boulardii (Florastor) 250 mg PO DAILY [facility] Last Admin: 04/10/17 08:02 Dose: 250 mg Senna (Senokot) 2 tab PO HSPRN PRN PRN Reason: Constipation Sodium Chloride ([place] Nasal [place] 0.65%) 0 ml EA NARE QIDPRN PRN PRN Reason: Nasal Congestion Zolpidem Tartrate (Ambien) 5 mg PO HSPRN PRN PRN Reason: Insomnia
[2017-04-10] MEDS: HumaLOG 300 UNITS/3 ML VIAL SC PRN (17:23)
[2017-04-10] MEDS: Insulin Detemir 100 UNITS/ML 25 UNITS in Pre-Filled Syringe 1 EACH SC SCH (21:09)
[2017-04-11] MEDS: Saccharomyces boulardii 250 MG CAP PO SCH (08:52)
[2017-04-11] MEDS: metFORMIN 500 MG TAB PO SCH (08:52)
[2017-04-11] MEDS: Alogliptin 6.25 MG TAB PO SCH (08:52)
[2017-04-11] MEDS: Aspirin 81 mg Enteric Coated Tablet PO SCH (08:53)
[2017-04-11] MEDS: glyBURIDE 5 MG TAB PO SCH (08:53)
[2017-04-11] MEDS: Famotidine 20 MG TAB PO SCH (08:53)
[2017-04-11] MEDS: Atorvastatin Calcium 20 MG TAB PO SCH (08:53)
[2017-04-11] MEDS: Lisinopril 10 MG TAB PO SCH (08:53)
[2017-04-11] MEDS: Clopidogrel Bisulfate 75 MG TAB PO SCH (08:53)
[2017-04-11] MEDS: Enoxaparin Sodium 40 MG/0.4 ML SYRINGE SC SCH (08:53)
[2017-04-11 08:58] VITALS: BP 151/85
[2017-04-11 09:09] VITALS: TEMP 98.1
--- NOTE | 2017-04-11 10:13 | PDOC.PN ---
- Subjective Encounter Start Date: 04/11/17 Encounter Start Time: 10:07 Patient seen at bedside. No overnight events, wishes to leave AMA - Objective Resuscitation Status: Resuscitation Status FULL:Full Resuscitation MAR Reviewed: Yes Vital Signs & Weight: Vital Signs (12 hours) Temp Pulse Resp BP BP Pulse Ox 04/11/17 08:53 151/85 H 04/11/17 08:00 98.1 F 86 16 151/85 H 95 Weight Admit Weight 197 lb 14.4 oz Weight 197 lb 14.4 oz I&O: 04/10/17 04/11/17 04/12/17 06:59 06:59 06:59 Intake Total 500 1620 Output Total 600 Balance -100 1620 Result Diagrams: 04/08/17 04:36 04/08/17 04:36 Additional Labs: Accuchecks 04/10/17 04/10/17 04/10/17 20:12 16:48 11:48 POC Glucose 182 H 281 H 202 H Phys Exam - Physical Examination Constitutional: NAD HEENT: PERRLA Neck: no JVD Respiratory: no rales Cardiovascular: RRR Gastrointestinal: soft Musculoskeletal: pulses present Neurological: moves all 4 limbs Psychiatric: A&O x 3 Dx/Plan (1) Acute osteomyelitis of metatarsal bone of right foot Code(s): M86.171 - OTHER ACUTE OSTEOMYELITIS, RIGHT ANKLE AND FOOT Status: Acute (2) Diabetic foot infection Code(s): E11.69 - TYPE 2 DIABETES MELLITUS WITH OTHER SPECIFIED COMPLICATION; L08.9 - LOCAL INFECTION OF THE SKIN AND SUBCUTANEOUS TISSUE, UNSP Status: Chronic (3) CAD (coronary artery disease) Code(s): I25.10 - ATHSCL HEART DISEASE OF [place] CORONARY ARTERY W/O ANG PCTRS Status: Chronic (4) CKD (chronic kidney disease) stage 3, GFR 30-59 ml/min Code(s): N18.3 - CHRONIC KIDNEY DISEASE, STAGE 3 (MODERATE) Status: Chronic (5) Hyperlipidemia Code(s): E78.5 - HYPERLIPIDEMIA, UNSPECIFIED Status: Chronic Qualifiers: (6) Hypertension Code(s): I10 - ESSENTIAL (PRIMARY) HYPERTENSION Status: Chronic - Plan cont current plan of care, continue antibiotics, psychosocial rehabilitation counselor * Awaiting home wound vac. * At this point the patient doesn't wish to wait for approval of the wound vac. I have explained to him that it is imperative for the treatment of his amputated toe. He will require outpatient wound care in addition to the home wound vac. He doesn't wish to wait for this. He understands that his wound can worsen, he can have further spreading of his infection requiring further amputation, sepsis. He still wishes to leave AMA. *
--- NOTE | 2017-04-11 19:28 | DIS ---
DATE OF ADMISSION: 04/07/2017 DATE OF DISCHARGE: 04/11/2017 AGAINST MEDICAL ADVICE NOTE BRIEF HOSPITAL COURSE: Mr. Deshaun Gonzalez is a 61-year-old male who presented to the emergency elly for a right diabetic foot infection. He was seen by his community administrator and has started to come to the emergency room for suspected osteomyelitis. He was having erythema and swelling over his right foot. He was subsequently admitted to the medical floor at which time he was placed on IV antibiotic ther apy with vancomycin and Zosyn. Wound care was consulted as well as Podiatry for evaluation of his ri ght foot cellulitis with diabetic ulceration. A foot x-ray at the time of admission revealed no radi ographic evidence for osteomyelitis. He was then subsequently taken for lower extremity MRI of his r ight foot which revealed soft tissue changes adjacent to the fifth metatarsal head suggesting underly ing osteomyelitis. Dr. Johnson, the community administrator was consulted and the patient underwent a partial fif th ray amputation of the right foot. Subsequent x-ray of the foot revealed expected postoperative ch anges. The patient had a wound VAC placed in. His microbiology grew out MRSA as well as Strep agala ctia group B, both of which were susceptible to clindamycin. The patient was to have outpatient woun d care setup. He did have a hospital wound VAC in place and goal was to have him switched out for a home VAC and then discharged home. On 04/11/2017, the patient did not want to wait for the home VAC which is still pending approval. He stated that he wanted to go home and he is going to followup wit h outpatient wound care, which is already set up. I have explained to the patient that he can now go home with the hospital VAC in a home wound VAC was standard of care and he needed for appropriate he aling of his osteomyelitis. The patient did not want to wait for the whole VAC and he understood th e risks of not having a home VAC while at home and getting his wound VAC changed. He wanted to go ho me. He understood the risks of further infection and worsening of his wound and possibility of furth er amputation of toes and possibly his foot as well as the possibility of sepsis. He understands the se risks as well as the risk of . He wants to go home. Instructions were given for wet to dry. Wound care was called to move the hospital VAC. The patient did not want to wait for a home VAC wh ich was still pending approval. I explained this to him at bedside that it may not be available unti tomorrow. He still wanted to go home. He states he will follow up on his own accord by his own me ans. He will be discharged later home today. I have given him a prescription for clindamycin based on susceptibilities. Other prescriptions have not been given and other arrangements have been made a s the patient left against medical advice. The nursing staff was present at the time. I have explai higinio to the patient at bedside and family the risks of against leaving medical advice and he still con tinued to wish to leave against medical advice. He left on 04/11/2017.
== END 2017-04-11 11:22 | disposition left against medical advice (07) | DRG 854 ==
LOC: ERS 16:06 → T4-A 04-07 00:27
PROVIDERS: ADMIT Internal Medicine; ATTEND Internal Medicine
PROC: 0Y6M0ZF Detachment at Right Foot, Partial 5th Ray, Open Approach (ICD-10-PCS; principal; 2017-04-09)
DX: A41.9 Sepsis, unspecified organism (principal); L03.115 Cellulitis of right lower limb; E11.22 Type 2 diabetes mellitus with diabetic chronic kidney disease; E11.621 Type 2 diabetes mellitus with foot ulcer; E87.1 Hypo-osmolality and hyponatremia; M86.8X7 Other osteomyelitis, ankle and foot; L02.611 Cutaneous abscess of right foot; I25.10 Atherosclerotic heart disease of native coronary artery without angina pectoris; I73.9 Peripheral vascular disease, unspecified; H40.9 Unspecified glaucoma; E11.65 Type 2 diabetes mellitus with hyperglycemia; I12.9 Hypertensive chronic kidney disease with stage 1 through stage 4 chronic kidney disease, or unspecified chronic kidney disease; N18.3 Chronic kidney disease, stage 3 (moderate); E66.9 Obesity, unspecified; Z68.30 Body mass index [BMI] 30.0-30.9, adult; E11.69 Type 2 diabetes mellitus with other specified complication; B95.62 Methicillin resistant Staphylococcus aureus infection as the cause of diseases classified elsewhere
CPT/HCPCS: 36415; 36416; 80053; 80202; 83605; 85025; 85652; 86140; 87040; 87070; 87077; 87149; 87186; 87205; 88305; 88311; 96365; J0696; J1650; J1815; J2250; J2543; J2704; J3010; J3370; J7050; S0020

== ENCOUNTER 2017-04-12 14:51 | Emergency (ER) | payer MEDICARE ==
[2017-04-12] MEDS ORDERED: Bacitracin Zinc 1 Packet ONE (18:16)
== END 2017-04-12 18:37 | disposition home or self-care (01) ==
LOC: ERS 14:51
DX: T81.89XA Other complications of procedures, not elsewhere classified, initial encounter (principal); E11.39 Type 2 diabetes mellitus with other diabetic ophthalmic complication; H40.9 Unspecified glaucoma; I10 Essential (primary) hypertension
CPT/HCPCS: 99282

== ENCOUNTER 2017-04-15 07:43 | Outpatient (CLI) | payer MEDICARE, OTHER ==
--- NOTE | 2017-04-15 09:33 | PRG ---
DATE OF SERVICE: 04/15/2017 SUBJECTIVE: A 61-year-old male returns to our wound clinic today for followup on bilateral ulceratio ns. We had seen him previously, but he gone away from the wound clinic for about 4 months. He devel oped an infection of right foot, which required partial fifth ray amputation which was performed on the 04/09. He was in the hospital and was said to receive the wound VAC, [facility] been received. He has been doing daily wet to dry gauz e dressing changes on both wounds. He is taking clindamycin 3 times a day. He denies nausea, vomiti ng, fevers or chills at this time. PHYSICAL EXAMINATION: Surgical wound of the right lateral fifth ray area measuring 6.9 cm x 2.3 cm x 1.2 cm of depth, 80% granular tissue, 20% slough and moderate serosanguineous drainage from the woun d. No odor, no periwound erythema, edema, or warmth or other signs of infection. Ulceration to the left plantar forefoot sub-second metatarsal head measuring 1.8 cm x 1.5 cm x 1 cm of depth, the flexo r longus tendon to the second digit is present within the wound base, does not probe to bone. The re st of the wound is 100% slough. Mild serosanguineous drainage from the wound. No malodor. No periwo und erythema, edema or warmth. ASSESSMENT: 1. 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 2. Status post right partial fifth ray amputation, left open to heal secondarily. PLAN: 1. Getting re-approval for wound VAC to be applied to both wounds, hopefully we can get the left kelly t wound to granulate over the tendon with aid of the wound VAC. Once he received some wound VAC, he will return to the [facility] to have it applied. Hopefully, this will be taken care of by Abdi barahona. I am going to start with every other day Silvercel or Silver hydrogel dressings to the wound base with gauze secondary dressings. Patient will continue with his oral antibiotics. 2. The patient will follow up with me in 1 week, but he will return for wound VAC application as lyndsey n as it arrives.
[2017-04-15] MEDS ORDERED: Sodium Chloride 0.9% 15 ML NEB ONE (13:31)
== END 2017-04-15 07:44 | disposition home or self-care (01) ==
LOC: WCC 07:43
PROVIDERS: ATTEND Podiatrist Foot & Ankle Surgery
DX: T81.89XD Other complications of procedures, not elsewhere classified, subsequent encounter (principal)
CPT/HCPCS: 11042; A4218

== ENCOUNTER 2017-04-19 08:14 | Outpatient (CLI) | payer MEDICARE, OTHER ==
[2017-05-13] MEDS ORDERED: Sodium Chloride 0.9% 15 ML NEB ONE (16:04)
== END 2017-04-19 08:15 | disposition home or self-care (01) ==
LOC: WCC 08:14
PROVIDERS: ATTEND Podiatrist Foot & Ankle Surgery
DX: T87.89 Other complications of amputation stump (principal); E11.621 Type 2 diabetes mellitus with foot ulcer; L97.529 Non-pressure chronic ulcer of other part of left foot with unspecified severity; Z89.421 Acquired absence of other right toe(s)
CPT/HCPCS: 36416; 97606

== ENCOUNTER 2017-04-22 08:12 | Outpatient (CLI) | payer MEDICARE, OTHER ==
[2017-04-22] MEDS ORDERED: Sodium Chloride 0.9% 15 ML NEB ONE (09:00)
--- NOTE | 2017-04-22 14:53 | PRG ---
DATE OF SERVICE: 04/22/2017 SUBJECTIVE: A 61-year-old male returns today for followup of bilateral foot ulcerations, digit his w ound VAC and had it placed on Tuesday and has been doing okay with the wound VAC in place since herman t time. Denies any nausea, vomiting, fevers or chills. PHYSICAL EXAMINATION: There is ulceration to the right lateral forefoot at his amputation site, 6.5 cm x 2.5 cm x 1 cm measuring 80% granulation tissue, 20% slough, no signs of periwound, erythema, catherine ma or warmth. Wound does not probe to bone. No drainage or other signs of infection. Second wound on the left foot measuring 1.6 cm x 1.4 cm x 0.4 cm. In the second metatarsal head, there is tendon exposed within the wound, it is 80% granular and 20% tendon does look improve since last visit with s ome more shiny moistness to it. No periwound erythema, edema or warmth. ASSESSMENT: 1. 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 2. 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 3. Diabetes with peripheral neuropathy. PLAN: 1. Full thickness debridement of both wounds down to the subcutaneous tissue layer removing all nonv iable tissue and biofilm within the wound bases with dermal curette. 2. Wound VAC will be reapplied today on both wounds at 125 mm continuous negative pressure therapy. He will follow up for 3 times a week dressing changes and see me again in 2 weeks.
== END 2017-04-22 08:13 | disposition home or self-care (01) ==
LOC: WCC 08:12
PROVIDERS: ATTEND Podiatrist Foot & Ankle Surgery
DX: T81.89XD Other complications of procedures, not elsewhere classified, subsequent encounter (principal); E11.621 Type 2 diabetes mellitus with foot ulcer; E11.42 Type 2 diabetes mellitus with diabetic polyneuropathy; L97.429 Non-pressure chronic ulcer of left heel and midfoot with unspecified severity; Z89.421 Acquired absence of other right toe(s)
CPT/HCPCS: 11042; A4218

== ENCOUNTER 2017-04-25 07:44 | Outpatient (CLI) | payer MEDICARE, OTHER ==
[2017-04-25] MEDS ORDERED: Sodium Chloride 0.9% 15 ML NEB ONE (10:00)
== END 2017-04-25 07:45 | disposition home or self-care (01) ==
LOC: WCC 07:44
PROVIDERS: ATTEND Podiatrist Foot & Ankle Surgery
DX: T81.89XD Other complications of procedures, not elsewhere classified, subsequent encounter (principal); E11.621 Type 2 diabetes mellitus with foot ulcer; L97.529 Non-pressure chronic ulcer of other part of left foot with unspecified severity; Z89.421 Acquired absence of other right toe(s)
CPT/HCPCS: 36416; 97605; A4218

== ENCOUNTER 2017-04-28 14:58 | Outpatient (CLI) | payer MEDICARE, OTHER | END 2017-04-28 14:59 | disposition home or self-care (01) | LOC: WCC 14:58 | PROVIDERS: ATTEND Podiatrist Foot & Ankle Surgery | DX: T87.89 Other complications of amputation stump (principal); E11.621 Type 2 diabetes mellitus with foot ulcer; L97.529 Non-pressure chronic ulcer of other part of left foot with unspecified severity; Z89.421 Acquired absence of other right toe(s) | CPT/HCPCS: 97606 ==

== ENCOUNTER 2017-05-02 07:43 | Outpatient (CLI) | payer MEDICARE, OTHER ==
[2017-05-02] MEDS ORDERED: Sodium Chloride 0.9% 15 ML NEB ONE (13:23)
== END 2017-05-02 07:44 | disposition home or self-care (01) ==
LOC: WCC 07:43
PROVIDERS: ATTEND Podiatrist Foot & Ankle Surgery
DX: T81.89XD Other complications of procedures, not elsewhere classified, subsequent encounter (principal); E11.621 Type 2 diabetes mellitus with foot ulcer; L97.529 Non-pressure chronic ulcer of other part of left foot with unspecified severity; Z89.421 Acquired absence of other right toe(s)
CPT/HCPCS: 97605; A4218

== ENCOUNTER 2017-05-04 07:43 | Outpatient (CLI) | payer MEDICARE, OTHER ==
[2017-05-04] MEDS ORDERED: Sodium Chloride 0.9% 15 ML NEB ONE (17:09)
== END 2017-05-04 07:44 | disposition home or self-care (01) ==
LOC: WCC 07:43
PROVIDERS: ATTEND Podiatrist Foot & Ankle Surgery
DX: T87.89 Other complications of amputation stump (principal); E11.621 Type 2 diabetes mellitus with foot ulcer; L97.529 Non-pressure chronic ulcer of other part of left foot with unspecified severity; Z89.421 Acquired absence of other right toe(s)
CPT/HCPCS: 97606; A4218

== ENCOUNTER 2017-05-06 07:46 | Outpatient (CLI) | payer MEDICARE ==
--- NOTE | 2017-05-06 09:48 | PRG ---
DATE OF SERVICE: 05/06/2017 SUBJECTIVE: A 61-year-old male returns status post right partial fifth ray amputation and for follow up on ulcer the left second metatarsal head. The patient has done well with VAC changes over the las t several weeks. Denies any nausea, vomiting, fevers or chills at this time. PHYSICAL EXAMINATION: Ulcer on the right lateral foot measures 2.5 cm x 1.2 cm 5.9 cm of depth. Thi s is significantly smaller since last visit, 100% granular wound base. No periwound erythema, edema or warmth. Wound #2 left plantar second metatarsal head measures 1.9 cm x 1.8 and 1.2 cm of depth, has about 30% slough tissue and the rest is filled with the second metatarsal head sitting in the wou nd base. Bone was noted to be somewhat brown and soft. No purulent drainage, no periwound erythema, edema or warmth. ASSESSMENT: 1. 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 2. Status post right partial fifth ray amputation, left to heal secondarily. PLAN: 1. Full thickness debridement of both wounds removing all nonviable tissue and biofilm with the derm al curet on the left foot wound. Rongeur was utilized to debride all nonviable bone including the en tirety of the second metatarsal head which was sent for bone culture, aerobic an anaerobic cultures. 2. Both wounds will have the wound VAC reapplied including black GranuFoam 125 mm of continuous nega tive pressure therapy and he will have 3 times a week dressing changes and follow up with me in 1 viraj bunn
[2017-05-06] MEDS ORDERED: Sodium Chloride 0.9% 15 ML NEB ONE (17:17)
== END 2017-05-06 07:47 | disposition home or self-care (01) ==
LOC: WCC 07:46
PROVIDERS: ATTEND Podiatrist Foot & Ankle Surgery
DX: L97.524 Non-pressure chronic ulcer of other part of left foot with necrosis of bone (principal); Z89.421 Acquired absence of other right toe(s)
CPT/HCPCS: 87070; 87077; 87186; 87205; A4218

== ENCOUNTER 2017-05-09 07:58 | Outpatient (CLI) | payer MEDICARE, OTHER | END 2017-05-09 07:59 | disposition home or self-care (01) | LOC: WCC 07:58 | PROVIDERS: ATTEND Podiatrist Foot & Ankle Surgery | DX: T81.89XD Other complications of procedures, not elsewhere classified, subsequent encounter (principal); E11.621 Type 2 diabetes mellitus with foot ulcer; L97.529 Non-pressure chronic ulcer of other part of left foot with unspecified severity | CPT/HCPCS: 36416; 97605 ==

== ENCOUNTER 2017-05-11 08:24 | Outpatient (CLI) | payer MEDICARE, OTHER | END 2017-05-11 08:25 | disposition home or self-care (01) | LOC: WCC 08:24 | PROVIDERS: ATTEND Podiatrist Foot & Ankle Surgery | DX: T81.89XD Other complications of procedures, not elsewhere classified, subsequent encounter (principal); E11.621 Type 2 diabetes mellitus with foot ulcer; L97.529 Non-pressure chronic ulcer of other part of left foot with unspecified severity; S98.1 Traumatic amputation of one toe | CPT/HCPCS: 97605 ==

== ENCOUNTER 2017-05-13 07:41 | Outpatient (CLI) | payer MEDICARE ==
--- NOTE | 2017-05-13 09:33 | PRG ---
DATE OF SERVICE: 05/13/2017 SUBJECTIVE: A 61-year-old male returns today for follow up bilateral foot ulcerations status post ri ght partial fifth ray amputation and debridement of the second metatarsal head from the plantar wound on the left side last week. The patient has been doing well with wound VAC dressing changes and has had no issues with the VAC since his last visit. Denies any nausea, vomiting, fevers or chills. He has been taking clindamycin daily since discharged from the hospital. PHYSICAL EXAMINATION: Ulceration of the right lateral foot amputation site measuring 2.8 cm x 1.0 cm x 1.0 cm, 100% granular wound base. No periwound erythema, edema or warmth. Wound on the left plan tar foot measuring 0.9 cm x 0.8 cm x 1.2 cm of depth, 50% granulation tissue, 50% slough. No periwou nd edema, erythema or warmth. Does not probe to bone, has no drainage. ASSESSMENT: 1. Non-pressure chronic ulceration to the left foot. 2. Status post right partial fifth ray amputation to the right foot. 3. Diabetes with peripheral neuropathy. PLAN: 1. Full thickness debridement of both wounds utilizing dermal curette and 15 blade down to bleeding granular wound base, removing all nonviable tissues, biofilm from the subcutaneous tissue layer of niles th wounds. 2. We will reapply the wound VAC to both wounds, continuous therapy at 125 mmHg. 3. I have changed his antibiotic based on the results of the cultures from the bone last week to Lev aquin 750 mg once daily. We will do this for 2 weeks and that should be sufficient. 4. The patient will follow up in 1 week with me.
[2017-05-13] MEDS ORDERED: Sodium Chloride 0.9% 15 ML NEB ONE (15:43)
== END 2017-05-13 07:42 | disposition home or self-care (01) ==
LOC: WCC 07:41
PROVIDERS: ATTEND Podiatrist Foot & Ankle Surgery
DX: T81.89XD Other complications of procedures, not elsewhere classified, subsequent encounter (principal); L97.529 Non-pressure chronic ulcer of other part of left foot with unspecified severity; E11.42 Type 2 diabetes mellitus with diabetic polyneuropathy; Z89.432 Acquired absence of left foot
CPT/HCPCS: 36416; A4218

== ENCOUNTER 2017-05-16 10:35 | Outpatient (CLI) | payer MEDICARE, OTHER | END 2017-05-16 10:36 | disposition home or self-care (01) | LOC: WCC 10:35 | PROVIDERS: ATTEND Podiatrist Foot & Ankle Surgery | DX: T81.89XD Other complications of procedures, not elsewhere classified, subsequent encounter (principal); E11.621 Type 2 diabetes mellitus with foot ulcer; L97.529 Non-pressure chronic ulcer of other part of left foot with unspecified severity; S98.131D Complete traumatic amputation of one right lesser toe, subsequent encounter | CPT/HCPCS: 97605 ==

== ENCOUNTER 2017-05-18 13:20 | Outpatient (CLI) | payer MEDICARE, OTHER ==
[2017-05-23] MEDS ORDERED: Sodium Chloride 0.9% 15 ML NEB ONE (15:39)
== END 2017-05-18 13:21 | disposition home or self-care (01) ==
LOC: WCC 13:20
PROVIDERS: ATTEND Podiatrist Foot & Ankle Surgery
DX: T87.89 Other complications of amputation stump (principal); E11.621 Type 2 diabetes mellitus with foot ulcer; L97.529 Non-pressure chronic ulcer of other part of left foot with unspecified severity; Z89.421 Acquired absence of other right toe(s)
CPT/HCPCS: 97606

== ENCOUNTER 2017-05-20 07:58 | Outpatient (CLI) | payer MEDICARE, OTHER ==
--- NOTE | 2017-05-20 11:28 | PRG ---
DATE OF SERVICE: 05/20/2017 SUBJECTIVE: The patient returns today for followup of bilateral foot wounds, status post right parti al fifth ray amputation and left plantar second metatarsal head ulceration. Doing well over the last week with the wound VAC. No problems. Denies any nausea, vomiting, fevers or chills. PHYSICAL EXAMINATION: Ulceration to the left plantar forefoot measuring 1 cm x 0.6 cm x 1 cm of dept h, 90% granulation tissue, 10% slough. No periwound erythema, edema or warmth. Wound does no longer probe to bone. No tendon present within the wound. Ulceration on the right lateral foot measures 1 .5 cm x 0.7 cm x 0.3 cm of depth, 100% granular tissue. No periwound erythema, edema, or warmth. Do es not probe to bone or tendon. ASSESSMENT: Non-pressure chronic ulceration, bilateral foot, status post right partial fifth ray amp utation, improving with wound VAC changes. PLAN: 1. Full thickness debridement of both wounds down to a bleeding granular wound base, removing all no nviable tissue and biofilm from the wound bases. The patient tolerated the procedure well. 2. We are going to continue with wound VAC to both sides, continuous 125 mmHg of negative pressure a nd black GranuFoam. Return for 3 times a week dressing changes and to see me in 1 week.
[2017-05-23] MEDS ORDERED: Sodium Chloride 0.9% 15 ML NEB ONE (16:53)
== END 2017-05-20 07:59 | disposition home or self-care (01) ==
LOC: WCC 07:58
PROVIDERS: ATTEND Podiatrist Foot & Ankle Surgery
DX: T81.89XD Other complications of procedures, not elsewhere classified, subsequent encounter (principal); Z89.421 Acquired absence of other right toe(s)

== ENCOUNTER 2017-05-23 15:07 | Outpatient (CLI) | payer MEDICARE, OTHER ==
[2017-05-23] MEDS ORDERED: Sodium Chloride 0.9% 15 ML NEB ONE (18:08)
== END 2017-05-23 15:08 | disposition home or self-care (01) ==
LOC: WCC 15:07
PROVIDERS: ATTEND Podiatrist Foot & Ankle Surgery
DX: T81.89XD Other complications of procedures, not elsewhere classified, subsequent encounter (principal); E11.621 Type 2 diabetes mellitus with foot ulcer; L97.529 Non-pressure chronic ulcer of other part of left foot with unspecified severity; S98.1 Traumatic amputation of one toe
CPT/HCPCS: 97606; A4218

== ENCOUNTER 2017-05-25 07:51 | Outpatient (CLI) | payer MEDICARE, OTHER | END 2017-05-25 07:52 | disposition home or self-care (01) | LOC: WCC 07:51 | PROVIDERS: ATTEND Podiatrist Foot & Ankle Surgery | DX: T81.89XD Other complications of procedures, not elsewhere classified, subsequent encounter (principal); E11.621 Type 2 diabetes mellitus with foot ulcer; L97.529 Non-pressure chronic ulcer of other part of left foot with unspecified severity; S98.1 Traumatic amputation of one toe | CPT/HCPCS: 97606 ==

== ENCOUNTER 2017-05-27 08:00 | Outpatient (CLI) | payer MEDICARE ==
--- NOTE | 2017-05-27 09:08 | PRG ---
DATE OF SERVICE: 05/27/2017 SUBJECTIVE: This is a 61-year-old male returns today for followup of bilateral plantar foot ulcerati ons status post right partial fifth ray amputation. The patient has done well with wound VAC since l ast visit. No problems or concerns at this time. Denies nausea, vomiting, fevers or chills. PHYSICAL EXAMINATION: Ulceration to the right lateral foot measures 1.4 x 0.7 x 0.8 cm, 100% granula r wound base. No periwound erythema, edema or warmth. Continues to improve. Wound on the left plan tar forefoot measuring 1.9 x 0.6 cm with 0.9 cm of depth, 100% granular wound base, some slight periw ound maceration. No periwound erythema, edema, or warmth, mild periwound hyperkeratosis. ASSESSMENT: 1. Non-pressure chronic ulceration to bilateral feet, status post right partial fifth ray amputation . 2. Diabetes with peripheral neuropathy. PLAN: 1. Full thickness debridement of both wounds utilizing dermal curet down to a bleeding granular woun d base removing all biofilm from the subcutaneous tissue layer as well as periwound hyperkeratosis wi th a 15-blade. The patient tolerated the procedure well. 2. Continue with wound VAC therapy 3 times a week, dressing changes going to switch to a white foam for the deep tunneling wound on the left foot. Continue with black granular foam on the right foot t o see if this makes any difference over the next week and how much we were getting the deeper wound t o fill in. 3. Will follow up with me in 1 week.
[2017-05-27] MEDS ORDERED: Sodium Chloride 0.9% 15 ML NEB ONE (16:36)
== END 2017-05-27 08:01 | disposition home or self-care (01) ==
LOC: WCC 08:00
PROVIDERS: ATTEND Podiatrist Foot & Ankle Surgery
DX: T87.89 Other complications of amputation stump (principal); E11.621 Type 2 diabetes mellitus with foot ulcer; E11.42 Type 2 diabetes mellitus with diabetic polyneuropathy; L97.429 Non-pressure chronic ulcer of left heel and midfoot with unspecified severity; L97.419 Non-pressure chronic ulcer of right heel and midfoot with unspecified severity; Z89.421 Acquired absence of other right toe(s)
CPT/HCPCS: A4218

== ENCOUNTER 2017-05-30 15:02 | Outpatient (CLI) | payer MEDICARE, OTHER ==
[2017-06-05] MEDS ORDERED: Sodium Chloride 0.9% 15 ML NEB ONE (11:11)
== END 2017-05-30 15:03 | disposition home or self-care (01) ==
LOC: WCC 15:02
PROVIDERS: ATTEND Podiatrist Foot & Ankle Surgery
DX: T81.89XD Other complications of procedures, not elsewhere classified, subsequent encounter (principal); E11.621 Type 2 diabetes mellitus with foot ulcer; L97.529 Non-pressure chronic ulcer of other part of left foot with unspecified severity; Z89.421 Acquired absence of other right toe(s)
CPT/HCPCS: 97606

== ENCOUNTER 2017-06-01 13:31 | Outpatient (CLI) | payer MEDICARE, OTHER | END 2017-06-01 13:32 | disposition home or self-care (01) | LOC: WCC 13:31 | PROVIDERS: ATTEND Podiatrist Foot & Ankle Surgery | DX: T87.89 Other complications of amputation stump (principal); E11.621 Type 2 diabetes mellitus with foot ulcer; L97.519 Non-pressure chronic ulcer of other part of right foot with unspecified severity; Z89.421 Acquired absence of other right toe(s) | CPT/HCPCS: 97605 ==

== ENCOUNTER 2017-06-03 08:52 | Outpatient (CLI) | payer MEDICARE, OTHER ==
--- NOTE | 2017-06-03 09:08 | PRG ---
DATE OF SERVICE: 06/03/2017 SUBJECTIVE: This is a 62-year-old male who presents today for followup of bilateral foot ulcerations , status post right partial fifth ray amputation, doing well with wound VAC changes 3 times a week. We switched him to white foam dressing last week, although when the dressing was removed today, [facility] ed that it was a black foam dressing. Denies nausea, vomiting, fevers or chills. PHYSICAL EXAMINATION: Ulceration to the right lateral foot at the amputation site measures 1.4 cm x 0.3 cm x 0.4 cm of depth, 100% granulation tissue in the base. No periwound erythema, edema, or warm th or signs of infection. Second wound on the plantar aspect of the left foot measures 0.7 cm x 0.5 cm x 1 cm of depth. This is measuring approximately the same depth as the last time, although it darrel ears that it has filled in more significantly around the edges. There is some mild periwound macerat ion and the wound base is 90% granulation tissue,10% slough. No periwound erythema, edema or warmth. ASSESSMENT: 1. Non-pressure chronic ulcerations to bilateral feet, status post right partial fifth ray amputatio n. 2. Diabetes with peripheral neuropathy. PLAN: 1. Full thickness debridement in both wounds down to the subcutaneous tissue layer removing nonviabl e tissue and biofilm from the wound base with the dermal curette. 2. We are going to continue with the wound VAC on the left foot at 125 mmHg and white foam. We are going to start with just daily Promogran dressing changes on the right foot as this is almost healed. 3. He will follow up with me in 2 weeks.
[2017-06-03] MEDS ORDERED: Sodium Chloride 0.9% 15 ML NEB ONE (11:11)
== END 2017-06-03 08:53 | disposition home or self-care (01) ==
LOC: WCC 08:52
PROVIDERS: ATTEND Podiatrist Foot & Ankle Surgery
DX: T81.89XD Other complications of procedures, not elsewhere classified, subsequent encounter (principal); E11.42 Type 2 diabetes mellitus with diabetic polyneuropathy; Z89.421 Acquired absence of other right toe(s)
CPT/HCPCS: 36415; 36416; 80053; 80061; 81001; 82570; 83036; 84156; A4218

== ENCOUNTER 2017-06-06 13:37 | Outpatient (CLI) | payer MEDICARE, OTHER ==
[~2017-06-06 13:37] MED LIST: Sodium Chloride 0.9% 15 ML NEB ONE
== END 2017-06-06 13:38 | disposition home or self-care (01) ==
LOC: WCC 13:37
PROVIDERS: ATTEND Podiatrist Foot & Ankle Surgery
DX: T81.89XD Other complications of procedures, not elsewhere classified, subsequent encounter (principal); E11.621 Type 2 diabetes mellitus with foot ulcer; L97.529 Non-pressure chronic ulcer of other part of left foot with unspecified severity; Z89.421 Acquired absence of other right toe(s)
CPT/HCPCS: 97606; A4218

== ENCOUNTER 2017-06-09 11:02 | Outpatient (CLI) | payer MEDICARE ==
[2017-06-09] MEDS ORDERED: Sodium Chloride 0.9% 15 ML NEB ONE (14:16)
== END 2017-06-09 11:03 | disposition home or self-care (01) ==
LOC: WCC 11:02
PROVIDERS: ATTEND Podiatrist Foot & Ankle Surgery
DX: T81.89XD Other complications of procedures, not elsewhere classified, subsequent encounter (principal); E11.621 Type 2 diabetes mellitus with foot ulcer; L97.529 Non-pressure chronic ulcer of other part of left foot with unspecified severity; Z89.421 Acquired absence of other right toe(s)
CPT/HCPCS: 36416; 97605; A4218

== ENCOUNTER 2017-06-13 13:15 | Outpatient (CLI) | payer MEDICARE ==
[2017-06-13] MEDS ORDERED: Sodium Chloride 0.9% 15 ML NEB ONE (14:22)
== END 2017-06-13 13:16 | disposition home or self-care (01) ==
LOC: WCC 13:15
PROVIDERS: ATTEND Podiatrist Foot & Ankle Surgery
DX: T81.89XD Other complications of procedures, not elsewhere classified, subsequent encounter (principal); E11.621 Type 2 diabetes mellitus with foot ulcer; L97.529 Non-pressure chronic ulcer of other part of left foot with unspecified severity; S98.1 Traumatic amputation of one toe
CPT/HCPCS: 36416; 97605; A4218

== ENCOUNTER 2017-06-15 13:13 | Outpatient (CLI) | payer MEDICARE ==
[2017-06-15] MEDS ORDERED: Sodium Chloride 0.9% 15 ML NEB ONE (14:32)
== END 2017-06-15 13:14 | disposition home or self-care (01) ==
LOC: WCC 13:13
PROVIDERS: ATTEND Podiatrist Foot & Ankle Surgery
DX: T81.89XD Other complications of procedures, not elsewhere classified, subsequent encounter (principal); E11.621 Type 2 diabetes mellitus with foot ulcer; L97.529 Non-pressure chronic ulcer of other part of left foot with unspecified severity
CPT/HCPCS: 97605; A4218

== ENCOUNTER 2017-06-17 08:10 | Outpatient (CLI) | payer MEDICARE ==
--- NOTE | 2017-06-17 08:51 | PRG ---
DATE OF SERVICE: 06/17/2017 SUBJECTIVE: This is a 62-year-old male returns today for bilateral foot wounds, status post right pa rtial fifth ray amputation. He has been doing well since last visit. He has had 3 times a week VAC changes on the left foot and has been doing daily Promogran dressing changes on the right foot. Shaquille es any nausea, vomiting, fevers or chills. PHYSICAL EXAMINATION: Ulcer to the right foot amputation site measures 0.5 cm x 0.1 cm x 0.1 cm of d epth, 100% granular wound base, no drainage, no periwound erythema or warmth. Left foot ulceration s ize has been maintained, slight maceration to the wound border granular wound base. The wound is 8.8 cm x 0.5 cm x 1 cm of depth. No periwound erythema, edema or warmth. No purulent drainage. ASSESSMENT: 1. Non-pressure chronic ulcerations, bilateral feet, status post right partial fifth ray amputation. 2. Diabetes with peripheral neuropathy. PLAN: 1. Full thickness debridement of both wounds down to the subcutaneous tissue layer removing all nonv iable tissue from the wound base and some periwound maceration from the left foot wound down to a ble eding granular wound base. The patient tolerated the procedure well. 2. Continue with daily Promogran dressing changes to the right foot. We will continue with the whit e foam on the wound VAC. We are going to increase pressure to 150 mmHg to see if we can increase the healing and granulation of this wound site. He will have 3 times a week VAC changes and follow up w david davila in 1 week.
[2017-06-17] MEDS ORDERED: Sodium Chloride 0.9% 15 ML NEB ONE (14:30)
== END 2017-06-17 08:11 | disposition home or self-care (01) ==
LOC: WCC 08:10
PROVIDERS: ATTEND Podiatrist Foot & Ankle Surgery
DX: E11.621 Type 2 diabetes mellitus with foot ulcer (principal); E11.42 Type 2 diabetes mellitus with diabetic polyneuropathy; L97.529 Non-pressure chronic ulcer of other part of left foot with unspecified severity; L97.519 Non-pressure chronic ulcer of other part of right foot with unspecified severity; Z89.421 Acquired absence of other right toe(s)
CPT/HCPCS: A4218

== ENCOUNTER 2017-06-20 14:10 | Outpatient (CLI) | payer MEDICARE | END 2017-06-20 14:11 | disposition home or self-care (01) | LOC: WCC 14:10 | PROVIDERS: ATTEND Podiatrist Foot & Ankle Surgery | DX: T81.89XD Other complications of procedures, not elsewhere classified, subsequent encounter (principal); E11.621 Type 2 diabetes mellitus with foot ulcer; L97.529 Non-pressure chronic ulcer of other part of left foot with unspecified severity; Z89.421 Acquired absence of other right toe(s) | CPT/HCPCS: 97605; A4218 ==

== ENCOUNTER 2017-06-22 14:34 | Outpatient (CLI) | payer MEDICARE | END 2017-06-22 14:35 | disposition home or self-care (01) | LOC: WCC 14:34 | PROVIDERS: ATTEND Podiatrist Foot & Ankle Surgery | DX: T81.89XD Other complications of procedures, not elsewhere classified, subsequent encounter (principal); E11.621 Type 2 diabetes mellitus with foot ulcer; L97.529 Non-pressure chronic ulcer of other part of left foot with unspecified severity; Z89.421 Acquired absence of other right toe(s) | CPT/HCPCS: 97605; A4218 ==

== ENCOUNTER 2017-06-24 07:51 | Outpatient (CLI) | payer MEDICARE ==
--- NOTE | 2017-06-24 09:45 | PRG ---
DATE OF SERVICE: 06/24/2017 SUBJECTIVE: This 62-year-old male returns today for followup of bilateral foot ulcerations status po st right foot partial fifth ray amputation. He has been doing well over the last week. He has been doing Promogran dressing to the right foot and has had VAC changes on the left foot. We switched to white foam with 150 mmHg on the left foot. He says he has been trying to stay off of it and walk on the heel as much as possible. PHYSICAL EXAMINATION: The right foot amputation site has healed. There is no wound. Some dry callu s skin over the incisional site. No opening to the incision though. The left plantar foot wound sarmiento s appear to have improved. It is measuring 0.6 cm x 0.6 cm. There is a small central tunnel which i s about 1.5 cm in depth. It does not probe to bone, 100% granular wound base. Minimal serous draina ge. No periwound erythema, edema or warmth. ASSESSMENT: Non-pressure chronic ulceration to the plantar aspect of the left foot and status post r ight partial fifth ray amputation site which has healed. PLAN: 1. Full thickness debridement of the left foot plantar wound, removing all biofilm and nonviable tis hiro from the wound base down to a bleeding granular wound base with a dermal curet. The patient tole rated the procedure well. 2. We are going to continue with the white foam wound VAC dressing at 150 mm continuous therapy. He will have this changed 3 times a week. He will follow up with me in 1 week.
== END 2017-06-24 07:52 | disposition home or self-care (01) ==
LOC: WCC 07:51
PROVIDERS: ATTEND Podiatrist Foot & Ankle Surgery
DX: L97.529 Non-pressure chronic ulcer of other part of left foot with unspecified severity (principal); S98.1 Traumatic amputation of one toe

== ENCOUNTER 2017-06-27 08:39 | Outpatient (CLI) | payer MEDICARE | END 2017-06-27 08:40 | disposition home or self-care (01) | LOC: WCC 08:39 | PROVIDERS: ATTEND Podiatrist Foot & Ankle Surgery | DX: T81.89XD Other complications of procedures, not elsewhere classified, subsequent encounter (principal); E11.621 Type 2 diabetes mellitus with foot ulcer; L97.529 Non-pressure chronic ulcer of other part of left foot with unspecified severity; Z89.421 Acquired absence of other right toe(s) | CPT/HCPCS: 97605; A4218 ==

== ENCOUNTER 2017-06-29 07:44 | Outpatient (CLI) | payer MEDICARE ==
[2017-06-29] MEDS ORDERED: Sodium Chloride 0.9% 15 ML NEB ONE (16:35)
== END 2017-06-29 07:45 | disposition home or self-care (01) ==
LOC: WCC 07:44
PROVIDERS: ATTEND Podiatrist Foot & Ankle Surgery
DX: T81.89XD Other complications of procedures, not elsewhere classified, subsequent encounter (principal); E11.621 Type 2 diabetes mellitus with foot ulcer; L97.529 Non-pressure chronic ulcer of other part of left foot with unspecified severity; Z89.421 Acquired absence of other right toe(s)
CPT/HCPCS: 97605; A4218

== ENCOUNTER 2017-07-01 08:26 | Outpatient (CLI) | payer MEDICARE ==
--- NOTE | 2017-07-01 12:17 | PRG ---
DATE OF SERVICE: 07/01/2017 SUBJECTIVE: This is a 62-year-old male returns today for left plantar forefoot ulceration, done well last week with the wound VAC, has been getting white foam dressing changes at 150 mmHg. Denies naus ea, vomiting, fevers or chills. PHYSICAL EXAMINATION: Ulceration of left plantar forefoot measuring 0.8 cm x 0.4 cm x 2.3 cm of dept h. There is a 100% granulation tissue with some slight periwound maceration. Wound does appear to b e closing in although not much improvement in depth. No periwound erythema, edema or warmth. ASSESSMENT: 1. Non-pressure chronic ulceration of the left plantar forefoot. 2. Diabetes with peripheral neuropathy. PLAN: 1. Full thickness debridement of the wound and the subcutaneous tissue layer removing all biofilm fr om the wound base and nonviable tissue down to a bleeding granular wound base. 2. We are going to reapply the wound VAC 3 times a week dressing changes for this VAC. 3. The patient will follow up with me in 1 week.
[2017-07-01] MEDS ORDERED: Sodium Chloride 0.9% 15 ML NEB ONE (19:48)
== END 2017-07-01 08:27 | disposition home or self-care (01) ==
LOC: WCC 08:26
PROVIDERS: ATTEND Podiatrist Foot & Ankle Surgery
DX: E11.621 Type 2 diabetes mellitus with foot ulcer (principal); L97.429 Non-pressure chronic ulcer of left heel and midfoot with unspecified severity; E11.40 Type 2 diabetes mellitus with diabetic neuropathy, unspecified
CPT/HCPCS: A4218

== ENCOUNTER 2017-07-04 15:06 | Outpatient (CLI) | payer MEDICARE, OTHER | END 2017-07-04 15:07 | disposition home or self-care (01) | LOC: WCC 15:06 | PROVIDERS: ATTEND Podiatrist Foot & Ankle Surgery | DX: T81.89XA Other complications of procedures, not elsewhere classified, initial encounter (principal) | CPT/HCPCS: 97605 ==

== ENCOUNTER 2017-07-06 14:35 | Outpatient (CLI) | payer MEDICARE, OTHER ==
[2017-07-08] MEDS ORDERED: Sodium Chloride 0.9% 15 ML NEB ONE (12:26)
== END 2017-07-06 14:36 | disposition home or self-care (01) ==
LOC: WCC 14:35
PROVIDERS: ATTEND Podiatrist Foot & Ankle Surgery
DX: T81.89XD Other complications of procedures, not elsewhere classified, subsequent encounter (principal); E11.621 Type 2 diabetes mellitus with foot ulcer; L97.529 Non-pressure chronic ulcer of other part of left foot with unspecified severity; Z89.421 Acquired absence of other right toe(s)
CPT/HCPCS: 97605

== ENCOUNTER 2017-07-08 07:44 | Outpatient (CLI) | payer MEDICARE, OTHER ==
--- NOTE | 2017-07-08 09:00 | PRG ---
DATE OF SERVICE: 07/08/2017 SUBJECTIVE: This 62-year-old male returns today for followup ulceration left plantar forefoot. He h as been getting 3 times a week with wound VAC changes and has had no problems with wound VAC since . PHYSICAL EXAMINATION: Ulcer left plantar forefoot measuring 0.4 cm x 0.3 cm with 1.5 cm of depth. W ound base is granular. No probeable bone within the wound. No drainage noted. Some slight periwoun d maceration. No periwound erythema, edema or warmth. ASSESSMENT: Non-pressure chronic ulceration of the left plantar forefoot, unchanged in depth from pr evious appointment. PLAN: 1. Full thickness debridement of the subcutaneous tissue layer down to a bleeding granular wound bas e, removing all nonviable tissue and biofilm from the wound. 2. The patient's wound has stalled out and I would like to try some EpiCord in this wound to see if we can get some of that depth filled in. I am going to look into obtaining that here at the hospital and see how we can go about doing that. 3. The patient will continue with 3 times a week wound VAC changes and follow up with me in 2 weeks.
== END 2017-07-08 07:45 | disposition home or self-care (01) ==
LOC: WCC 07:44
PROVIDERS: ATTEND Podiatrist Foot & Ankle Surgery
DX: L97.529 Non-pressure chronic ulcer of other part of left foot with unspecified severity (principal)
CPT/HCPCS: 11042; A4218

== ENCOUNTER 2017-07-11 07:33 | Outpatient (CLI) | payer MEDICARE, OTHER | END 2017-07-11 07:34 | disposition home or self-care (01) | LOC: WCC 07:33 | PROVIDERS: ATTEND Podiatrist Foot & Ankle Surgery | DX: T81.89XD Other complications of procedures, not elsewhere classified, subsequent encounter (principal); E11.621 Type 2 diabetes mellitus with foot ulcer; L97.529 Non-pressure chronic ulcer of other part of left foot with unspecified severity; Z89.421 Acquired absence of other right toe(s) | CPT/HCPCS: 97605; A4218 ==

== ENCOUNTER 2017-07-14 13:43 | Outpatient (CLI) | payer MEDICARE, OTHER ==
[2017-07-14] MEDS ORDERED: Sodium Chloride 0.9% 15 ML NEB ONE (17:00)
== END 2017-07-14 13:44 | disposition home or self-care (01) ==
LOC: WCC 13:43
PROVIDERS: ATTEND Podiatrist Foot & Ankle Surgery
DX: S91.302D Unspecified open wound, left foot, subsequent encounter (principal)
CPT/HCPCS: 97602; A4218

== ENCOUNTER 2017-07-18 13:19 | Outpatient (CLI) | payer MEDICARE, OTHER ==
[2017-07-18] MEDS ORDERED: Sodium Chloride 0.9% 15 ML NEB ONE (19:51)
== END 2017-07-18 13:20 | disposition home or self-care (01) ==
LOC: WCC 13:19
PROVIDERS: ATTEND Podiatrist Foot & Ankle Surgery
DX: T81.89XD Other complications of procedures, not elsewhere classified, subsequent encounter (principal); E11.621 Type 2 diabetes mellitus with foot ulcer; L97.529 Non-pressure chronic ulcer of other part of left foot with unspecified severity; Z89.421 Acquired absence of other right toe(s)
CPT/HCPCS: 97602; A4218

== ENCOUNTER 2017-07-20 10:46 | Outpatient (CLI) | payer MEDICARE, OTHER ==
[2017-07-20] MEDS ORDERED: Sodium Chloride 0.9% 15 ML NEB ONE (17:54)
== END 2017-07-20 10:47 | disposition home or self-care (01) ==
LOC: WCC 10:46
PROVIDERS: ATTEND Podiatrist Foot & Ankle Surgery
DX: T81.89XD Other complications of procedures, not elsewhere classified, subsequent encounter (principal); E11.621 Type 2 diabetes mellitus with foot ulcer; L97.529 Non-pressure chronic ulcer of other part of left foot with unspecified severity; Z89.421 Acquired absence of other right toe(s)
CPT/HCPCS: 97602; A4218

== ENCOUNTER 2017-07-22 07:44 | Outpatient (CLI) | payer MEDICARE, OTHER ==
--- NOTE | 2017-07-22 08:50 | PRG ---
DATE OF SERVICE: 07/22/2017 SUBJECTIVE: This is a 62-year-old male returns today for follow up left plantar foot ulceration. We stopped the wound VAC last week because insurance is no longer paying for it and switched to a packi ng gauze dressing changed 3 times a week. He has done well over the last week. Denies any nausea, v omiting, fevers or chills. PHYSICAL EXAMINATION: Ulceration to the left plantar forefoot measures 0.3 cm x 0.3 cm x 0.5 cm of d epth, greatly improved in the depth of the wound, 100% granular wound base. Periwound tissue is hype rkeratotic. No drainage, no erythema, edema or warmth. ASSESSMENT: 1. Non-pressure chronic ulceration to the left forefoot, improving. 2. Diabetes with peripheral neuropathy. PLAN: 1. Full thickness debridement of the subcutaneous tissue layer down to a bleeding granular wound bas e, removing all nonviable tissue and biofilm from the wound base as well as hyperkeratotic tissue fro m the periwound area with dermal curet and 15 blade scalpel. 2. We will continue with 3 times a week plain packing strip gauze and Arnulfo wrap dressing changes. 3. The patient will follow up with me in 1 week.
== END 2017-07-22 07:45 | disposition home or self-care (01) ==
LOC: WCC 07:44
PROVIDERS: ATTEND Podiatrist Foot & Ankle Surgery
DX: E11.621 Type 2 diabetes mellitus with foot ulcer; L97.429 Non-pressure chronic ulcer of left heel and midfoot with unspecified severity; E11.40 Type 2 diabetes mellitus with diabetic neuropathy, unspecified
CPT/HCPCS: 11042

== ENCOUNTER 2017-07-25 11:11 | Outpatient (CLI) | payer MEDICARE, OTHER | END 2017-07-25 11:12 | disposition home or self-care (01) | LOC: WCC 11:11 | PROVIDERS: ATTEND Podiatrist Foot & Ankle Surgery | DX: T81.89XD Other complications of procedures, not elsewhere classified, subsequent encounter (principal); E11.621 Type 2 diabetes mellitus with foot ulcer; L97.529 Non-pressure chronic ulcer of other part of left foot with unspecified severity; Z89.422 Acquired absence of other left toe(s) | CPT/HCPCS: 97602 ==

== ENCOUNTER 2017-07-29 07:43 | Outpatient (CLI) | payer MEDICARE, OTHER ==
--- NOTE | 2017-07-29 09:13 | PRG ---
DATE OF SERVICE: 07/29/2017 SUBJECTIVE: The patient returns today for followup of left plantar forefoot ulceration. He has had no problems over the last week. He has been having gauze packing dressings done 3 times a week. Den ies nausea, vomiting, fevers or chills. PHYSICAL EXAMINATION: Ulceration to the left plantar forefoot is healed. There is hyperkeratotic co vering. This was pared down and no underlying ulcer present, 100% epithelium. No periwound erythema , edema or warmth. ASSESSMENT: 1. Non-pressure chronic ulceration to the left plantar forefoot has resolved. 2. Diabetes with peripheral neuropathy. PLAN: Continue a breathable bandage to pad protect the newly formed skin for the next week. Needs keli burr up with me in 1-2 months at my normal clinic for routine diabetic foot care and close monitorin g because he is at high risk for developing foot complications. He will call and set that appointmen lexus
[2017-07-29] MEDS ORDERED: Sodium Chloride 0.9% 15 ML NEB ONE (14:50)
== END 2017-07-29 07:44 | disposition home or self-care (01) ==
LOC: WCC 07:43
PROVIDERS: ATTEND Podiatrist Foot & Ankle Surgery
DX: E11.621 Type 2 diabetes mellitus with foot ulcer (principal); L97.529 Non-pressure chronic ulcer of other part of left foot with unspecified severity; E11.42 Type 2 diabetes mellitus with diabetic polyneuropathy
CPT/HCPCS: 97602; A4218

== ENCOUNTER 2017-08-15 07:34 | Outpatient (CLI) | payer MEDICARE, OTHER ==
[2017-08-15 08:34] LABS: Mean Corpuscular HGB CONC 33.4 g/dL (32.0-36.0); Mean Corpuscular Hemoglobin 29.6 pg (27.0-31.0); Mean Corpuscular Volume 88.6 fl (80.0-94.0); Mean Platelet Volume 6.9 fL (7.4-10.4); Platelet Count 235 thou/uL (130-400); RBC Distribution Width 12.3 % (11.5-14.5); Red Blood Cell (RBC) Count 4.06 mill/uL (4.70-6.10); White Blood Cell (WBC) Count 7.9 thou/uL (4.8-10.8)
[2017-08-15 08:40] LABS: INR-International Normal Ratio 1.1; Prothrombin Time 13.8 SEC (12.0-14.7)
[2017-08-15 08:41] LABS: PTT 26.7 SEC (22.9-36.1)
[2017-08-15 08:56] LABS: ALT (SGPT) 14 U/L (8-55); AST (SGOT) 14 U/L (5-34); Albumin 3.9 g/dL (3.4-4.8); Alkaline Phosphatase 81 U/L (40-150); Anion Gap 8 mmol/L (10-20); BUN (Urea Nitrogen) 23 mg/dL (8.4-25.7); Bilirubin, Total 1.2 mg/dL (0.2-1.2); Calc. Creatinine Clearance 0 mL/min (70-130); Calcium 9.2 mg/dL (7.8-10.44); Carbon Dioxide 26 mmol/L (23-31); Cardiac Risk 2.7 (Less than 4.5); Chloride 106 mmol/L (98-107); Cholesterol 104 mg/dl (< 200 Desired); Estimated GFR-MDRD 57; Globulin 3.9 g/dL (2.4-3.5); Glucose 115 mg/dL (80-115); HDL Cholesterol 39 mg/dL (>60 Neg Risk); LDL Cholesterol, Calculated 51 mg/dL; Protein, Total 7.8 g/dL (5.8-8.1); Sodium 136 mmol/L (136-145); Triglycerides 68 mg/dL (Less than 150)
== END 2017-08-15 07:35 | disposition home or self-care (01) ==
LOC: LABBT 07:34
PROVIDERS: ATTEND Internal Medicine Cardiovascular Disease
DX: Z01.818 Encounter for other preprocedural examination (principal); I42.9 Cardiomyopathy, unspecified
CPT/HCPCS: 80053; 80061; 85027; 85610; 85730; 93005; 93010

== ENCOUNTER → 2017-08-16 | Day surgery (SDC) | payer MEDICARE, OTHER ==
[~2017-08-16] MED LIST changes: +Diazepam 5 MG TAB ONE; +Iopamidol 370 76% 100 ML VIAL ONE; +Lidocaine 1% (PF) 30 ML VIAL ONE; -Sodium Chloride 0.9% 15 ML NEB ONE
== END ==
LOC: SDC 05:42
PROVIDERS: ATTEND Internal Medicine Cardiovascular Disease
PROC: 4A023N7 Measurement of Cardiac Sampling and Pressure, Left Heart, Percutaneous Approach (ICD-10-PCS; principal; 2017-08-16)
PROC: B2111ZZ Fluoroscopy of Multiple Coronary Arteries using Low Osmolar Contrast (ICD-10-PCS; 2017-08-16)
DX: I25.10 Atherosclerotic heart disease of native coronary artery without angina pectoris (principal); I25.5 Ischemic cardiomyopathy; I50.22 Chronic systolic (congestive) heart failure; I25.2 Old myocardial infarction; E11.9 Type 2 diabetes mellitus without complications; Z88.8 Allergy status to other drugs, medicaments and biological substances; Z95.5 Presence of coronary angioplasty implant and graft; Z79.4 Long term (current) use of insulin; Z79.02 Long term (current) use of antithrombotics/antiplatelets; Z79.82 Long term (current) use of aspirin; Z79.899 Other long term (current) drug therapy
CPT/HCPCS: 76942; 82962; 93458; C1769; 36416; J1644; J2001

== ENCOUNTER 2019-05-15 05:38 | Day surgery (SDC) | payer MEDICARE ==
[2019-05-15] MEDS ORDERED: Cyclopentolate 1% Opth Drop 2 ML BOT ONE (06:25)
[2019-05-15] MEDS ORDERED: Phenylephrine 2.5% Ophth Soln 5 ML BOT ONE (06:25)
[2019-05-15] MEDS ORDERED: EPINEPHrine 0.3 MG in Ophthalmic Irrigation Solution 500 ML IRR SCH (06:26)
[2019-05-15] MEDS ORDERED: PROPOFOL 20 ML ONE (06:51)
[2019-05-15] MEDS ORDERED: Midazolam HCl 2 mg/2 ml Vial ONE (06:51)
[2019-05-15] MEDS ORDERED: Fentanyl 100 MCG/2 ML VIAL ONE (06:51)
[2019-05-15] MEDS ORDERED: Acetaminophen 500 MG TAB ONE (09:23)
[2019-05-15] MEDS ORDERED: CEFAZOLIN 1 GM VIAL ONE (10:47)
[2019-05-15] MEDS ORDERED: Triamcinolone 40 MG/ML VIAL ONE (10:47)
[2019-05-15] MEDS ORDERED: Lidocaine 1% PF 5 ML VIAL ONE (10:47)
[2019-05-15] MEDS ORDERED: Bupivacaine PF 0.75% SDV 10 ML ONE (10:47)
[2019-05-15] MEDS ORDERED: Lidocaine 4% PF 5 ML AMP ONE (10:47)
[2019-05-15] MEDS ORDERED: Maxitrol 0.1% Opth Oint 3.5 GM TUBE ONE (10:47)
[2019-05-15] MEDS ORDERED: PROPOFOL 200 MG/20 ML VIAL ONE (10:47)
--- NOTE | 2019-05-15 11:52 | OP ---
DATE OF PROCEDURE: 05/15/2019 PRINCIPAL PREOPERATIVE DIAGNOSES: 1. 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 2. Neovascular glaucoma, right eye. POSTOPERATIVE DIAGNOSES: 1. 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 2. Neovascular glaucoma, right eye. NAME OF PROCEDURES PERFORMED: 1. Superotemporal Ahmed valve removal. 2. Inferonasal Ahmed valve insertion. ESTIMATED BLOOD LOSS: None. SPECIMENS REMOVED: None. COMPLICATIONS: None. ANESTHESIA: MAC with retrobulbar block. SUMMARY OF OPERATION: The patient was identified in the preoperative holding area, where the correct eye being the right eye was marked for surgery. The patient was taken to the operating room, where MAC anesthesia was induced. A retrobulbar block was administered to the right eye. The block consisted of 1:1 ratio of 4% lidocaine and 0.75% Marcaine. A total of 5 mL was administered. The right eye was then prepped and draped in the usual sterile ophthalmic fashion for surgery. A wire-clip lid speculum was placed. A superotemporal pars plana clip and Ahmed valve were noted to be exposed superotemporally. A conjunctival peritomy was fashioned with Luisana scissors supratemporally to aid in visualization of this area. The tube was noted to be encapsulated. This capsule was progressively dissected with use of the Luisana scissors and the Vannas scissors. Upon successful removal of the tube, the prior Ahmed valve insertion site was sutured in a [id number] fashion with 7-0 Vicryl suture. The conjunctiva was subsequently closed with 7-0 Vicryl interrupted sutures. Attention was turned inferonasally, where an inferonasal stay suture was placed through the cornea and retracted to allow for improved visualization. The conjunctival peritomy was subsequently created inferonasally with a relaxing suture to allow for visualization. Cauterization was applied as needed. The Ahmed valve was primed and subsequently inserted inferonasally. The plate was sutured through the 2 holes with 5-0 Mersilene suture. Following securing the plate in place, the tube was cut at the limbus. Subsequently, a stab incision was made with a 25-gauge trocar through the sclera 4 mm posterior to the limbus. The tube was subsequently inserted gently. The tube overlying the insertion site was covered with Tutoplast, which was sutured to the sclera with 7-0 Vicryl suture. The overlying conjunctiva was subsequently sutured with a running suture and a mattress suture close to the limbus with 7-0 Vicryl. Following successful closure of the conjunctiva, subconjunctival Ancef and Kenalog were injected. The stay suture was removed. The wire-clip lid speculum was removed followed by application of Tobradex ointment and a light patch and shield. The patient tolerated the procedure well and was taken to outpatient recovery area in good condition. Job ID: [id number]
== END 2019-05-15 11:10 | disposition home or self-care (01) ==
LOC: SDC 05:38
PROVIDERS: ATTEND Ophthalmology Retina Specialist
PROC: 08W0XJZ Revision of Synthetic Substitute in Right Eye, External Approach (ICD-10-PCS; principal; 2019-05-15)
DX: T85.398A Other mechanical complication of other ocular prosthetic devices, implants and grafts, initial encounter (principal); H40.9 Unspecified glaucoma; Z88.8 Allergy status to other drugs, medicaments and biological substances
CPT/HCPCS: 66180; L8612; J0171; J0690; J2001; J2250; J2704; J3010; J3301; J3490

== ENCOUNTER 2021-05-25 13:57 | Outpatient (CLI) | payer MEDICARE | END 2021-05-25 13:58 | disposition home or self-care (01) | LOC: BICRAD 13:57 | PROVIDERS: ATTEND Family Medicine | DX: R05.9 Cough, unspecified (principal); R91.8 Other nonspecific abnormal finding of lung field | CPT/HCPCS: 71046 ==

== ENCOUNTER 2021-06-04 17:20 | Outpatient (CLI) | payer MEDICARE ==
[2021-06-05 17:54] LABS: SARS-CoV-2 PCR by NAA DETECTED (NotDetected)
== END 2021-06-04 17:21 | disposition home or self-care (01) ==
LOC: LABBT 17:20
PROVIDERS: ATTEND Ophthalmology Retina Specialist
DX: U07.1 COVID-19 (principal); Z01.812 Encounter for preprocedural laboratory examination
CPT/HCPCS: U0003; U0005

== ENCOUNTER 2024-02-18 19:53 | Inpatient (IN) | payer MEDICARE, OTHER ==
[2024-02-18 20:26] LABS: #Basophils Less than 0.03 10x3/uL (0.0-0.2); %Basophils 0.2 % (0.0-1.0); %Eosinophils 0.3 % (0.0-10.0); %Lymphocytes 2.4 % (21.0-51.0); %Monocytes 1.9 % (0.0-10.0); %Neutrophils 94.7 % (42.0-75.0); Hematocrit 41.3 % (42.0-52.0); Hemoglobin 13.9 g/dL (14.0-18.0); Mean Corpuscular HGB CONC 33.7 g/dL (32.0-36.0); Mean Corpuscular Hemoglobin 30.6 pg (27.0-31.0); Mean Platelet Volume 9.5 fL (7.4-10.4); Platelet Count 215 10x3/uL (130-400); RBC Distribution Width 12.6 % (11.5-14.5); Red Blood Cell (RBC) Count 4.54 mill/uL (4.70-6.10)
[2024-02-18 20:39] LABS: ALT (SGPT) 19 U/L (8-55); AST (SGOT) 20 U/L (5-34); Alkaline Phosphatase 100 U/L (40-110); Anion Gap 19 mmol/L (10-20); BUN (Urea Nitrogen) 22 mg/dL (8.4-25.7); Bilirubin, Total 1.2 mg/dL (0.2-1.2); Calc. Creatinine Clearance 0 mL/min (70-130); Calcium 8.9 mg/dL (7.8-10.44); Carbon Dioxide 19 mmol/L (23-31); Chloride 102 mmol/L (98-107); Estimated GFR 44; Glucose 340 mg/dL (80-115); Potassium 4.6 mmol/L (3.5-5.1); Sodium 135 mmol/L (136-145)
[2024-02-18] MEDS ORDERED: Aspirin Chewable 81 MG TAB ONE (20:42)
[2024-02-18] MEDS ORDERED: Ketorolac Tromethamine 30 MG (1 mL) VIAL ONE (20:42)
[2024-02-18] MEDS ORDERED: Ondansetron PF 4 MG/2 ML Vial ONE (20:42)
[2024-02-18 21:08] LABS: Actual Bicarbonate (HCO3v) 19.6 mEq/L (22-28); Chloride (VBG) 102 mmol/L (98-106); Hematocrit-VBG 43 % (42.0-52.0); Hemoglobin (Hb) 14.7 g/dL (12.6-17.4); Potassium (VBG) 4.53 mmol/L (3.70-5.30); Sodium 134 mmol/L (133-146); pH (venous) 7.364 (7.32-7.43)
[2024-02-18 21:21] LABS: Prothrombin Time 13.2 sec (12.0-14.7)
[2024-02-18 21:22] LABS: PTT 23.4 sec (22.9-36.1); Troponin I 0.169 ng/mL (< 0.028)
[2024-02-18 21:25] LABS: Acetaminophen Less than 10 mcg/mL (Less than 10); Alcohol Less than 10.0 mg/dL (Less than 10); Salicylate Less than 8.0 mg/dL (Less than 8.0)
[2024-02-18 22:16] LABS: Bacteria/HPF None Seen HPF (None Seen); Bilirubin Negative (Negative); Blood, Urine 1+ (Negative); CAUTI Indications for Culture Alt mental st,lethar; Clarity Clear (Clear); Glucose, Urine (Dipstick) Greater than 1000 mg/dL (Negative); Ketone, Urine 20 mg/dL (Negative); Leukocyte Negative Leu/uL (Negative); Nitrite Negative (Negative); Protein, Urine (Dipstick) 300 mg/dL (Neg-Trace); RBC/HPF 0-3 HPF (0-3); Specific Gravity, Urine 1.012 (1.002-1.036); Squamous Epithelial 0-3 HPF (0-3); Urobilinogen Normal mg/dL (Less than 2); WBC/HPF 0-3 HPF (0-3)
[2024-02-18 22:20] LABS: Urine Culture Reflex No No
[2024-02-18 22:22] LABS: Amphetamine Not Detected (NotDetected); Barbiturates Screen Not Detected (NotDetected); Benzodiazepine Screen Not Detected (NotDetected); Cocaine Metabolite Screen Not Detected (NotDetected); Methadone Not Detected (NotDetected); Methamphetamine Not Detected (NotDetected); Opiate Screen Not Detected (NotDetected); Oxycodone Screen Not Detected (NotDetected); Phencyclidine (PCP) Not Detected (NotDetected); THC/Cannabinoid Screen Not Detected (NotDetected); Tricyclic Screen Not Detected (NotDetected)
[2024-02-18] MEDS ORDERED: Dextrose 50% Abboject 50 ML SYRINGE SLOW IVP PRN (22:53)
[2024-02-18] MEDS ORDERED: Ondansetron PF 4 MG/2 ML Vial IVP PRN (22:53)
[2024-02-18] MEDS ORDERED: Acetaminophen 325 MG TAB PO PRN (22:53)
[2024-02-18] MEDS ORDERED: Glucagon 1 MG/ML KIT IM PRN (22:53)
[2024-02-18] MEDS ORDERED: Dextrose 5% in Water 1,000 ML IV PRN (22:53)
[2024-02-18] MEDS: Lactated Ringer's 1,000 ML IV SCH (23:34)
[2024-02-18] MEDS: Insulin Lispro 100 UNIT/ML 10 ML VIAL SC PRN (23:35)
[2024-02-18 23:42] VITALS: BMI 32.1
[2024-02-19 00:24] LABS: Lactic Acid 2.01 mmol/L (0.5-2.2)
[2024-02-19 00:28] LABS: Hemoglobin A1c 11.2 % (4.0-6.0)
[2024-02-19 01:00] LABS: Hematocrit 37.5 % (42.0-52.0); Hemoglobin 12.3 g/dL (14.0-18.0); Platelet Count 196 10x3/uL (130-400)
[2024-02-19] MEDS: Heparin 10,000 UNITS/ 10 ML VIAL SLOW IVP SCH (01:28)
[2024-02-19] MEDS: Heparin 25,000 units/D5W 500 ML IVPB SCH (01:29)
[2024-02-19 03:26] LABS: #Basophils 0.05 10x3/uL (0.0-0.2); #Eosinophils Less than 0.03 10x3/uL (0.0-0.7); %Basophils 0.3 % (0.0-1.0); %Eosinophils 0.1 % (0.0-10.0); %Lymphocytes 2.9 % (21.0-51.0); %Monocytes 6.4 % (0.0-10.0); %Neutrophils 88.8 % (42.0-75.0); Hematocrit 36.3 % (42.0-52.0); Mean Corpuscular HGB CONC 33.1 g/dL (32.0-36.0); Mean Corpuscular Hemoglobin 30.8 pg (27.0-31.0); Mean Corpuscular Volume 93.3 fL (78.0-98.0); Mean Platelet Volume 9.9 fL (7.4-10.4); Platelet Count 204 10x3/uL (130-400); RBC Distribution Width 12.8 % (11.5-14.5); Red Blood Cell (RBC) Count 3.89 mill/uL (4.70-6.10)
[2024-02-19 04:51] LABS: Anion Gap 14 mmol/L (10-20); BUN (Urea Nitrogen) 25 mg/dL (8.4-25.7); Calc. Creatinine Clearance 50 mL/min (70-130); Carbon Dioxide 17 mmol/L (23-31); Cardiac Risk 3.6 (Less than 4.5); Chloride 104 mmol/L (98-107); Cholesterol 124 mg/dl (< 200 Desired); Estimated GFR 37; Glucose 393 mg/dL (80-115); HDL Cholesterol 34 mg/dL (>60 Neg Risk); LDL Cholesterol, Calculated 74 mg/dL; Potassium 4.8 mmol/L (3.5-5.1); Sodium 130 mmol/L (136-145); Triglycerides 79 mg/dL (Less than 150)
[2024-02-19] MEDS: Vancomycin (BATCH) 2.5 GM in Premix 1 BAG IVPB SCH (06:04)
[2024-02-19] MEDS: Insulin Lispro 100 UNIT/ML 10 ML VIAL SC PRN (06:21)
[2024-02-19] MEDS ORDERED: Heparin 5,000 UNITS/ML VIAL SC SCH (09:00)
[2024-02-19] MEDS: Cefepime 1 GM in Sodium Chloride 0.9% 100 ML IVPB SCH (09:42)
[2024-02-19] MEDS: Aspirin 81 mg Enteric Coated Tablet PO SCH (09:43)
[2024-02-19] MEDS: Famotidine 20 MG TAB PO SCH (09:43)
[2024-02-19] MEDS: FLU (Fluad Triv) TS24-25 (65UP)/MF59C/PF 45 MCG/0.5 ML Syringe IM ONE (09:43)
[2024-02-19] MEDS: Clopidogrel Bisulfate 300 MG TAB PO SCH (12:45)
[2024-02-19] MEDS: Carvedilol 3.125 MG TAB PO SCH ×2 (12:45→18:10)
[2024-02-19] MEDS: Insulin Lispro 100 UNIT/ML 10 ML VIAL SC SCH (15:40)
[2024-02-19] MEDS: Cefepime 2 GM in Sodium Chloride 0.9% 100 ML IVPB SCH (18:10)
[2024-02-19] MEDS ORDERED: Carvedilol 6.25 MG TAB PO SCH (21:00)
[2024-02-19] MEDS: Atorvastatin Calcium 40 MG TAB PO SCH (21:08)
[2024-02-20 05:07] LABS: #Basophils 0.03 10x3/uL (0.0-0.2); %Basophils 0.4 % (0.0-1.0); %Eosinophils 1.8 % (0.0-10.0); %Lymphocytes 16.4 % (21.0-51.0); %Monocytes 8.9 % (0.0-10.0); %Neutrophils 72.3 % (42.0-75.0); Hematocrit 31.9 % (42.0-52.0); Hemoglobin 10.7 g/dL (14.0-18.0); Mean Corpuscular HGB CONC 33.5 g/dL (32.0-36.0); Mean Corpuscular Volume 92.5 fL (78.0-98.0); Mean Platelet Volume 9.8 fL (7.4-10.4); Platelet Count 150 10x3/uL (130-400); RBC Distribution Width 13.1 % (11.5-14.5); Red Blood Cell (RBC) Count 3.45 mill/uL (4.70-6.10)
[2024-02-20 05:23] LABS: Vancomycin, Random 19.5 ug/mL (See Comment)
[2024-02-20 05:25] LABS: Anion Gap 11 mmol/L (10-20); BUN (Urea Nitrogen) 29 mg/dL (8.4-25.7); Calc. Creatinine Clearance 52 mL/min (70-130); Calcium 7.7 mg/dL (7.8-10.44); Carbon Dioxide 19 mmol/L (23-31); Chloride 105 mmol/L (98-107); Estimated GFR 39; Glucose 223 mg/dL (80-115); Potassium 4.3 mmol/L (3.5-5.1); Sodium 131 mmol/L (136-145)
[2024-02-20] MEDS: Vancomycin (BATCH) 1.25 GM in Premix 1 BAG IVPB SCH (06:48)
[2024-02-20] MEDS ORDERED: Communication Order-Pharmacy FS SCH (08:45)
[2024-02-20] MEDS ORDERED: [UNRECOGNIZED DRUG - REMARK] PO SCH (09:00)
[2024-02-20] MEDS ORDERED: Atorvastatin Calcium 20 MG TAB PO SCH (09:00)
[2024-02-20] MEDS ORDERED: Aspirin 81 mg Enteric Coated Tablet PO SCH (09:00)
[2024-02-20] MEDS ORDERED: Empagliflozin 10 MG TAB PO SCH (09:00)
[2024-02-20] MEDS: glipiZIDE 5 MG TAB PO SCH (10:03)
[2024-02-20] MEDS: Clopidogrel Bisulfate 75 MG TAB PO SCH (10:04)
[2024-02-20] MEDS: Empagliflozin 25 MG TAB PO SCH (10:04)
[2024-02-20] MEDS: Sodium Chloride 0.9% 1,000 ML IV SCH (10:10)
[2024-02-20] MEDS: Lactated Ringer's 1,000 ML IV SCH (12:23)
[2024-02-21 01:32] LABS: Hematocrit 34.6 % (42.0-52.0); Hemoglobin 11.5 g/dL (14.0-18.0); Platelet Count 164 10x3/uL (130-400)
[2024-02-21 05:29] LABS: #Basophils Less than 0.03 10x3/uL (0.0-0.2); %Basophils 0.2 % (0.0-1.0); %Eosinophils 0.4 % (0.0-10.0); %Lymphocytes 9.8 % (21.0-51.0); %Monocytes 7.4 % (0.0-10.0); %Neutrophils 81.6 % (42.0-75.0); Hematocrit 34.8 % (42.0-52.0); Hemoglobin 11.4 g/dL (14.0-18.0); Mean Corpuscular HGB CONC 32.8 g/dL (32.0-36.0); Mean Corpuscular Hemoglobin 29.9 pg (27.0-31.0); Mean Corpuscular Volume 91.3 fL (78.0-98.0); Mean Platelet Volume 10.1 fL (7.4-10.4); Platelet Count 176 10x3/uL (130-400); RBC Distribution Width 13.1 % (11.5-14.5); Red Blood Cell (RBC) Count 3.81 mill/uL (4.70-6.10)
[2024-02-21 06:10] LABS: Anion Gap 13 mmol/L (10-20); BUN (Urea Nitrogen) 26 mg/dL (8.4-25.7); Calc. Creatinine Clearance 54 mL/min (70-130); Calcium 8.1 mg/dL (7.8-10.44); Carbon Dioxide 20 mmol/L (23-31); Chloride 106 mmol/L (98-107); Estimated GFR 41; Glucose 153 mg/dL (80-115); Potassium 4.1 mmol/L (3.5-5.1); Sodium 135 mmol/L (136-145)
[2024-02-21] MEDS: Vancomycin 1 GM in Premix 1 BAG IVPB SCH (09:41)
[2024-02-21] MEDS ORDERED: Iopamidol 370 76% 100 ML VIAL ONE (10:15)
[2024-02-21] MEDS ORDERED: Adenosine 6 mg (2 mL) VIAL ONE (10:58)
[2024-02-21] MEDS ORDERED: fentaNYL 50 mcg/mL 1 mL Vial ONE (10:58)
[2024-02-21] MEDS ORDERED: Verapamil 5 MG/2 ML VIAL ONE ×2 (10:59→11:09)
[2024-02-21] MEDS ORDERED: Midazolam HCl 2 mg/2 ml Vial ONE (10:59)
[2024-02-21] MEDS ORDERED: Heparin 10,000 UNITS/ 10 ML VIAL ONE (10:59)
[2024-02-21] MEDS ORDERED: Nitroglycerin 50 MG/250 ML BOT 250 ML ONE (10:59)
[2024-02-21] MEDS ORDERED: Nitroglycerin 0.4 MG TAB (25 Tab Bottle) SL PRN (13:34)
[2024-02-21] MEDS ORDERED: Acetaminophen/Codeine 30-300mg Tablet PO PRN ×2 (13:34)
[2024-02-21] MEDS ORDERED: Sodium Chloride 0.9% 200 ML IV PRN (13:34)
[2024-02-21] MEDS: Sodium Chloride 0.9% 1,000 ML IV SCH (16:45)
[2024-02-21 21:59] LABS: ALT (SGPT) 21 U/L (8-55); AST (SGOT) 25 U/L (5-34); Albumin 2.1 g/dL (3.4-4.8); Alkaline Phosphatase 78 U/L (40-110); Anion Gap 11 mmol/L (10-20); BUN (Urea Nitrogen) 25 mg/dL (8.4-25.7); Bilirubin, Total 1.1 mg/dL (0.2-1.2); Calc. Creatinine Clearance 57 mL/min (70-130); Calcium 8.1 mg/dL (7.8-10.44); Carbon Dioxide 18 mmol/L (23-31); Chloride 108 mmol/L (98-107); Estimated GFR 44; Globulin 3.9 g/dL (2.4-3.5); Glucose 240 mg/dL (80-115); Potassium 3.9 mmol/L (3.5-5.1); Sodium 133 mmol/L (136-145)
[2024-02-21] MEDS: Furosemide 40 MG (4 mL) VIAL SLOW IVP SCH (22:54)
[2024-02-22 05:12] LABS: #Basophils 0.03 10x3/uL (0.0-0.2); %Basophils 0.3 % (0.0-1.0); %Eosinophils 0.5 % (0.0-10.0); %Lymphocytes 11.7 % (21.0-51.0); %Monocytes 10.4 % (0.0-10.0); %Neutrophils 76.1 % (42.0-75.0); Hematocrit 35.2 % (42.0-52.0); Hemoglobin 11.3 g/dL (14.0-18.0); Mean Corpuscular HGB CONC 32.1 g/dL (32.0-36.0); Mean Corpuscular Hemoglobin 30.1 pg (27.0-31.0); Mean Corpuscular Volume 93.9 fL (78.0-98.0); Mean Platelet Volume 10.2 fL (7.4-10.4); Platelet Count 183 10x3/uL (130-400); Red Blood Cell (RBC) Count 3.75 mill/uL (4.70-6.10)
[2024-02-22 05:20] LABS: Vancomycin, Random 22.4 ug/mL (See Comment)
[2024-02-22 05:24] LABS: Anion Gap 14 mmol/L (10-20); BUN (Urea Nitrogen) 25 mg/dL (8.4-25.7); Calc. Creatinine Clearance 57 mL/min (70-130); Calcium 8.1 mg/dL (7.8-10.44); Carbon Dioxide 22 mmol/L (23-31); Chloride 107 mmol/L (98-107); Estimated GFR 43; Glucose 131 mg/dL (80-115); Potassium 4.1 mmol/L (3.5-5.1); Sodium 139 mmol/L (136-145)
[2024-02-22 06:15] VITALS: TEMP 98.3
[2024-02-22 08:51] VITALS: BP 119/59
== END 2024-02-22 12:48 | disposition home or self-care (01) | DRG 281 ==
LOC: ERS 19:53 → OBS 22:18 → OBSVTOIN 02-20 12:11
PROVIDERS: ADMIT Internal Medicine; ATTEND Hospitalist
PROC: 4A023N7 Measurement of Cardiac Sampling and Pressure, Left Heart, Percutaneous Approach (ICD-10-PCS; principal; 2024-02-21)
PROC: B2111ZZ Fluoroscopy of Multiple Coronary Arteries using Low Osmolar Contrast (ICD-10-PCS; 2024-02-21)
PROC: B2151ZZ Fluoroscopy of Left Heart using Low Osmolar Contrast (ICD-10-PCS; 2024-02-21)
DX: I21.4 Non-ST elevation (NSTEMI) myocardial infarction (principal); E87.1 Hypo-osmolality and hyponatremia; I50.22 Chronic systolic (congestive) heart failure; I13.0 Hypertensive heart and chronic kidney disease with heart failure and stage 1 through stage 4 chronic kidney disease, or unspecified chronic kidney disease; E11.22 Type 2 diabetes mellitus with diabetic chronic kidney disease; I12.9 Hypertensive chronic kidney disease with stage 1 through stage 4 chronic kidney disease, or unspecified chronic kidney disease; K04.7 Periapical abscess without sinus; N18.2 Chronic kidney disease, stage 2 (mild); I25.10 Atherosclerotic heart disease of native coronary artery without angina pectoris; E11.51 Type 2 diabetes mellitus with diabetic peripheral angiopathy without gangrene; Z95.5 Presence of coronary angioplasty implant and graft; Z88.8 Allergy status to other drugs, medicaments and biological substances; Z79.899 Other long term (current) drug therapy; Z83.3 Family history of diabetes mellitus
CPT/HCPCS: 36415; 36416; 71045; 80048; 80053; 80061; 80202; 80306; 80307; 81001; 82805; 83036; 83605; 83880; 84484; 85014; 85018; 85025; 85049; 85347; 85610; 85730; 87040; 87086; 87428; 93005; 93010; 93458; 96372; 96374; 96375; 96376; 99152; 99153; C1760; C1769; C1894; G0378; J0153; J0692; J1644; J1815; J1885; J1940; J2250; J2405; J3010; J3370; J3370-JW; J7120; Q9967

== ENCOUNTER 2024-11-16 10:45 | Inpatient (IN) | payer MEDICARE ==
[2024-11-16 11:34] LABS: #Basophils 0.03 10x3/uL (0.0-0.2); #Eosinophils 0.08 10x3/uL (0.0-0.7); #Monocytes 0.63 10x3/uL (0.11-0.59); #Neutrophils 5.03 10x3/uL (1.40-6.50); %Basophils 0.4 % (0.0-1.0); %Eosinophils 1.1 % (0.0-10.0); %Lymphocytes 23.4 % (21.0-51.0); %Monocytes 8.3 % (0.0-10.0); %Neutrophils 66.3 % (42.0-75.0); Hematocrit 30.0 % (42.0-52.0); Hemoglobin 9.2 g/dL (14.0-18.0); Mean Corpuscular Hemoglobin 28.0 pg (27.0-31.0); Mean Corpuscular Volume 91.2 fL (78.0-98.0); Platelet Count 198 10x3/uL (130-400); Red Blood Cell (RBC) Count 3.29 mill/uL (4.70-6.10); White Blood Cell (WBC) Count 7.58 10x3/uL (4.8-10.8)
[2024-11-16 11:59] LABS: Troponin I 0.031 ng/mL (< 0.028)
[2024-11-16 12:25] LABS: ALT (SGPT) 18 U/L (Less than 45); AST (SGOT) 28 U/L (11-34); Albumin 2.4 g/dL (3.1-4.5); Alkaline Phosphatase 146 U/L (40-110); Anion Gap 13 mmol/L (10-20); BUN (Urea Nitrogen) 66 mg/dL (8.4-25.7); Bilirubin, Total 1.0 mg/dL (0.3-1.2); Calc. Creatinine Clearance 0 mL/min (70-130); Calcium 7.2 mg/dL (7.8-10.44); Carbon Dioxide 22 mmol/L (23-31); Chloride 102 mmol/L (98-107); Globulin 4.0 g/dL (2.4-3.5); Glucose 120 mg/dL (80-115); Potassium 3.9 mmol/L (3.5-5.1); Sodium 133 mmol/L (136-145)
[2024-11-16] MEDS ORDERED: Furosemide 40 MG (4 mL) VIAL ONE (14:35)
[2024-11-16] MEDS ORDERED: Acetaminophen 325 MG TAB PO PRN (14:48)
[2024-11-16] MEDS ORDERED: Senokot S 8.6-50 MG TAB PO PRN (14:48)
[2024-11-16] MEDS: Famotidine 20 MG TAB PO SCH (21:02)
[2024-11-16] MEDS: Carvedilol 3.125 MG TAB PO SCH (21:02)
[2024-11-17 04:57] LABS: #Basophils 0.04 10x3/uL (0.0-0.2); #Eosinophils 0.07 10x3/uL (0.0-0.7); #Monocytes 0.60 10x3/uL (0.11-0.59); #Neutrophils 4.07 10x3/uL (1.40-6.50); %Basophils 0.7 % (0.0-1.0); %Eosinophils 1.2 % (0.0-10.0); %Lymphocytes 17.8 % (21.0-51.0); %Monocytes 10.3 % (0.0-10.0); %Neutrophils 69.8 % (42.0-75.0); Hematocrit 32.3 % (42.0-52.0); Hemoglobin 9.8 g/dL (14.0-18.0); Mean Corpuscular Hemoglobin 27.3 pg (27.0-31.0); Mean Corpuscular Volume 90.0 fL (78.0-98.0); Platelet Count 253 10x3/uL (130-400); Red Blood Cell (RBC) Count 3.59 mill/uL (4.70-6.10); White Blood Cell (WBC) Count 5.83 10x3/uL (4.8-10.8)
[2024-11-17 05:12] LABS: Anion Gap 17 mmol/L (10-20); BUN (Urea Nitrogen) 71 mg/dL (8.4-25.7); Calc. Creatinine Clearance 19 mL/min (70-130); Calcium 8.1 mg/dL (7.8-10.44); Carbon Dioxide 22 mmol/L (23-31); Chloride 100 mmol/L (98-107); Glucose 244 mg/dL (80-115); Potassium 5.1 mmol/L (3.5-5.1); Sodium 134 mmol/L (136-145)
[2024-11-17] MEDS: Furosemide 40 MG (4 mL) VIAL SLOW IVP SCH (06:09)
[2024-11-17] MEDS: Albumin 25% 25 GM (100 mL) BOT IVPB SCH (06:10)
[2024-11-17 06:25] VITALS: BMI 32.5
[2024-11-17 08:23] VITALS: BP 101/58; TEMP 98.5
[2024-11-17] MEDS: Aspirin 81 mg Enteric Coated Tablet PO SCH (10:11)
[2024-11-17] MEDS: Enoxaparin 40 MG (0.4 mL) SYRINGE SC SCH (10:11)
== END 2024-11-17 13:46 | disposition home or self-care (01) | DRG 296 ==
LOC: ERS 10:45 → ERHOLD 13:26 → OBSVTOIN 16:28 → 2NO 18:57
PROVIDERS: ADMIT Hospitalist; ATTEND Hospitalist
PROC: 30233J1 Transfusion of Nonautologous Serum Albumin into Peripheral Vein, Percutaneous Approach (ICD-10-PCS; principal; 2024-11-17)
DX: I46.9 Cardiac arrest, cause unspecified (principal); I50.23 Acute on chronic systolic (congestive) heart failure; I13.0 Hypertensive heart and chronic kidney disease with heart failure and stage 1 through stage 4 chronic kidney disease, or unspecified chronic kidney disease; I25.5 Ischemic cardiomyopathy; R79.89 Other specified abnormal findings of blood chemistry; E11.22 Type 2 diabetes mellitus with diabetic chronic kidney disease; N18.9 Chronic kidney disease, unspecified; E11.628 Type 2 diabetes mellitus with other skin complications; E11.51 Type 2 diabetes mellitus with diabetic peripheral angiopathy without gangrene; I25.10 Atherosclerotic heart disease of native coronary artery without angina pectoris; E66.01 Morbid (severe) obesity due to excess calories; D63.1 Anemia in chronic kidney disease; T42.4X1A Poisoning by benzodiazepines, accidental (unintentional), initial encounter; T40.411A Poisoning by fentanyl or fentanyl analogs, accidental (unintentional), initial encounter; E78.5 Hyperlipidemia, unspecified; Z95.5 Presence of coronary angioplasty implant and graft; Z98.890 Other specified postprocedural states; I25.2 Old myocardial infarction; Z79.02 Long term (current) use of antithrombotics/antiplatelets; Z89.422 Acquired absence of other left toe(s); Z88.8 Allergy status to other drugs, medicaments and biological substances; Z79.84 Long term (current) use of oral hypoglycemic drugs; Z79.899 Other long term (current) drug therapy; Z79.82 Long term (current) use of aspirin; Z79.4 Long term (current) use of insulin; Z68.32 Body mass index [BMI] 32.0-32.9, adult
CPT/HCPCS: 36415; 71045; 80048; 80053; 83880; 84484; 85025; 93005; 96374; G0378; J1940; P9047

== ENCOUNTER 2024-12-19 13:36 | Outpatient (CLI) | payer MEDICARE | END 2024-12-19 13:37 | disposition home or self-care (01) | LOC: RAD 13:36 | PROVIDERS: ATTEND Internal Medicine | DX: R06.00 Dyspnea, unspecified (principal); J90 Pleural effusion, not elsewhere classified | CPT/HCPCS: 71046 ==

== ENCOUNTER 2025-02-15 11:09 | Emergency (ER) | payer MEDICARE | END 2025-02-15 14:40 | disposition home or self-care (01) | LOC: ERS 11:09 | DX: K56.41 Fecal impaction (principal); E11.9 Type 2 diabetes mellitus without complications; I10 Essential (primary) hypertension; Z79.02 Long term (current) use of antithrombotics/antiplatelets; Z79.899 Other long term (current) drug therapy; Z79.82 Long term (current) use of aspirin | CPT/HCPCS: 99283 ==